=== PATIENT | male | born 1960 | race Caucasian/White ===

== ENCOUNTER 2024-05-02 22:55 | Inpatient (IN) ==
--- OUTSIDE RECORDS SUMMARY | 2024-05-02 23:03 | External Medical Summary | Summary of Care ---
Author Name Unknown Organization [facility] Address [address] [place] [address] Phone [phone] Care Team Providers Care Glass Technologist Name Role Phone NestorMarshall Shira RIZVI Primary Care Provider [phone] Reason for Visit * Reason Comments Outpatient Testing Encounter Details Date Type Department Care Team (Late st Contact Info) Description 11/27/2023 8:20 AM EST Laboratory Laboratory [facility] [address] [place] [id number] [facility] [address] [facility] [place] [address] Encounter for long-term (current) use of medications Allergies No known active allergiesdocumented as of this encounter (statuses as of 11/27/2023) Medications Medication Sig Dispensed Refills Start Date End Date Status Atorvastatin Calcium 40 MG Oral Tablet (Lipitor) TAKE ONE TABLET BY MOUTH EVERY DAY IN THE MORNING 90 Tablet 0 11/19/2023 Active Sildenafil Citrate 20 MG Oral Tablet (Revatio) Take 2 to 5 tablets by mouth as needed for sexual relations 20 Tablet 0 11/21/2023 Active documented as of this encounter (statuses as of 11/27/2023) Active Problems Problem Noted Date Diagnosed Date ADVANCE DIRECTIVE INFORMATION 11/08/2008 Overview: No, Advance Directive brochure offered , patient declined. documented as of this encounter (statuses as of 11/27/2023) Immunizations Name Administration Dates Next Due COVID-19 mRNA, LNP-s, No Pre serve, 2-Dose Series (Moderna) 03/20/2021,02/16/2021 COVID-19, MRNA-LNP, 23-24, P F, 30 MCG/0.3 mL, 12 YRS AND ABOVE, IM (CleanMyCRM-Comirnaty) 09/13/2023 COVID-19, mRNA, LNP-s, PF, B ooster, 100mcg/0.5mg (Moderna) 04/23/2022,10/15/2021 Pneumococcal Conjugate Vaccine, 20-valent (Prevn ar20) 11/27/2023 Seasonal Influenza Virus Vac cine, Unspecified Formulation 09/16/2022,09/10/2019 Seasonal Influenza, PF, 6 M & above, IM , (FluLaval or Fluzone) 09/02/2020 Seasonal Influenza, QUAD, wi th Preserv, 6 mons & Above, 0.5 mL, IM 08/14/2018 Seasonal Influenza, Quadrivalent Hd (Fluzone Hd) 09/13/2023 TD, Preservative Free 02/11/2019 TDAP (age 11 and older)(Adacel) 08/19/2008 Zoster Vaccine Recombinant (Shingrix) 08/22/2021 ,06/21/2021 documented as of this encounter Social History Tobacco Use Types Packs/Day Years Used Date Smoking Tobacco: Never Smokeless Tobacco: Never Alcohol Use Standard Drinks/Week Comments Yes 0.8 (1 standard drink = 0.6 oz p ure alcohol) occ wine or beer Hunger Vital Sign Answer Date Recorded Worried About Running Out of Food in the Last Ye ar Not on file 11/19/2023 Within the past 12 months, t he food you bought just didn't last and you didn't have money to get more. Never true 11/19/2023 Sex and Gender Information Value Date Recorded Sex Assigned at Male 11/19/2023 10:10 AM EST Gender Identity Male 11/19/2023 10:10 AM EST Sexual Orientation Straight 11/19/2023 10 :10 AM EST Job Start Date Occupation Industry Not on file Not on file Not on file documented as of this encounter Plan of Treatment Upcoming Encounters Date Type Department Care Team (Late st Contact Info) Description 11/30/2024 7:40 AM EST Office Visit Family Practice [facility] [address] [facility] [place] [address] Fernanda Gonzalez MD [address] [facility] [place] [address] 11/30/2024 10:00 AM EST Office Visit Dermatology [facility] [place] [address] [facility] [place] [address] Aashish Hooper MD [address] [facility] [place] [address] Pending Results Name Type Priority Associated Diagnoses Date /Time COMPREHENSIVE METABOLIC PANEL Lab Routine Encounter for long-term (current) use of medications 11/27/2023 8:13 AM EST LIPID PANEL WITH DIRECT LDL IF TG IS HIGH Lab Routine Encounter for long-term (current) use of medications 11/27/2023 8:13 AM EST Scheduled Procedures Name Priority Associated Diagnoses Date/Ti me COLONOSCOPY FLEXIBLE PROXIMA L DIAGNOSTIC Recall Special screening for malignant neoplasms, colon Health Maintenance Due Date Last Done Comments Depression Screening 1970 Cologuard 2003 Fecal Occult Blood Test 2003 Sigmoidoscopy 2003 Colonoscopy 10/19/2023 10/19/2013, 10/19/2013 Colorectal Cancer Screening 10/19/2023 Diabetes Screening 01/24/2025 01/24/2022, 0 03/01/2019, 09/14/2013 Lipid Panel 07/09/2026 07/09/2021, 0804/2019, 03/01/2019, Additional history exists DTaP,Tdap,and Td Vaccines (3 - Td or Tdap) 02/11/2029 02/11/2019, 08/19/2008 Zoster Vaccines Completed 08/22/2021, 06/21/2021 COVID-19 Vaccine Completed 09/13/2023, 05/2022, 10/15/2021, Additional history exists Influenza Vaccine (FLU shot) Completed , 09/16/2022, 09/02/2020, Additional history exists Pneumococcal Vaccine: 65+ Years Completed 11/27/2023 GARDASIL-HPV IMMUNIZATION SERIES Aged Out No longer eligible based on patient's age to complete this topic Hepatitis B Aged Out No longer eligi ble based on patient's age to complete this topic MENINGOCOCCAL (MENACTRA/MENVEO) Aged Out No longer eligible based on patient's age to complete this topic documented as of this encounter Medical Devices Not on filedocumented as of this encounter Visit Diagnoses Diagnosis Encounter for long-term (current) use of medications Encounter for long-term (current) use of other medications documented in this encounter Care Teams Glass Technologist Relationship Specialty Start Date End Date Marshall Baez DO [address] [place] [address] PCP - General Family Medicine 09/14/13 documented as of this encounter
--- OUTSIDE RECORDS SUMMARY | 2024-05-02 23:03 | External Medical Summary | Summary of Care ---
Author Name Unknown Organization [facility] Address [address] [facility] [address] Phone [phone] Care Team Providers Care Civil Engineering Draftsperson Name Role Phone Marshall Baez DO Primary Care Provider [phone] Encounter Details Date Type Department Care Team (Late st Contact Info) Description 03/30/2024 Telephone Hepatology, [facility] [address] [place] [address] Concetta Felipe DO [address] [place] [address] Allergies No known active allergiesdocumented as of this encounter (statuses as of 04/05/2024) Medications Medication Sig Dispensed Refills Start Date End Date Status Atorvastatin Calcium 40 MG Oral Tablet (Lipitor) TAKE ONE TABLET BY MOUTH EVERY DAY IN THE MORNING 90 Tablet 11/19/2023 Active Additional Information Patient taking differently:40 mg OralEVERY OTHER DAY, In the morning., Reported on 03/24/2024 Sildenafil Citrate 20 MG Oral Tablet (Revatio) TAKE 2 TO 5 TABLETS BY MOUTH NEEDED FOR SEXUAL RELATIONS 30 Tablet 3 03/25/2024 Active documented as of this encounter (statuses as of 04/05/2024) Active Problems Problem Noted Date Diagnosed Date ADVANCE DIRECTIVE INFORMATION 11/08/2008 Overview: No, Advance Directive brochure offered , patient declined. documented as of this encounter (statuses as of 04/05/2024) Immunizations Name Administration Dates Next Due COVID-19 mRNA, LNP-s, No Pre serve, 2-Dose Series (Moderna) 03/20/2021,02/16/2021 COVID-19, MRNA-LNP, 23-24, P F, 30 MCG/0.3 mL, 12 YRS AND ABOVE, IM (RF Biocidics-Comirnaty) 09/13/2023 COVID-19, mRNA, LNP-s, PF, B ooster, [...] on file documented as of this encounter Miscellaneous Notes * Telephone Encounter - Tita Luong OSA - 04/05/2024 12:19 PM EDT lmm * Telephone Encounter - Heena Medel MD - 04/05/2024 8:22 AM EDT Please schedule colonoscopy with EMR with me at [facility] next available, needs to be a 2 hrs case. * Telephone Encounter - Tita Luong OSA - 03/30/2024 12:[address] Medel, please review and advise * Telephone Encounter - Concetta Felipe DO - 03/30/2024 11:40 AM EDT This patient had a colonoscopy done by me today. Has 1 remaining large polyp that needs removed by EMR. Dr. Medel aware. Please schedule with him. Colonoscopy order placed. Concetta Felipe DO documented in this encounter Plan of Treatment Upcoming Encounters Date Type Department Care Team (Late st Contact Info) Description 11/30/2024 7:40 AM EST Office Visit Family Practice [facility] [address] [facility] [place] [address] Fernanda Gonzalez MD [address] [facility] [place] [address] 11/30/2024 10:00 AM EST Office Visit Dermatology [facility] [address] [facility] [place] [address] Aashish Hooper MD [address] [facility] [place] [address] Scheduled Orders Name Type Priority Associated Diagnoses Orde r Schedule COLONOSCOPY, DIAGNOSTIC (RECTUM) Procedures Routine Polyp of descending colon, unspecified type Ordered: 03/30/2024 Health Maintenance Due Date Last Done Comments Depression Screening 1970 Cologuard 2003 Fecal Occult Blood Test 2003 Sigmoidoscopy 2003 COVID-19 Vaccine ( season) 2024 09/13/2023, 09/16/2022, 04/23/2022, Additional history exists Diabetes Screening 11/27/2026 11/27/2023, 0 01/24/2022, 03/01/2019, Additional history exists Lipid Panel 11/27/2028 11/27/2023, 06/18, 07/12/2019, Additional history exists DTaP,Tdap,and Td Vaccines (3 - Td or Tdap) 02/11/2029 02/11/2019, 08/19/2008 Colonoscopy 03/30/2034 03/30/2024, 03/17, 10/19/2013, Additional history exists Colorectal Cancer Screening 03/30/2034 Zoster Vaccines Completed 09/15/2021, 04/2021, 06/21/2021 Influenza Vaccine (FLU shot) Completed , 09/13/2023, 09/16/2022, Additional history exists Pneumococcal Vaccine: 65+ Years [...] as of this encounter Visit Diagnoses Diagnosis Polyp of descending colon, unspecified type- Primary documented in this encounter Care Teams Civil Engineering Draftsperson Relationship Specialty Start Date End Date Marshall Baez DO [address] [place] [address] PCP - General Family Medicine 09/14/13 documented as of this encounter
--- OUTSIDE RECORDS SUMMARY | 2024-05-02 23:03 | External Medical Summary | Summary of Care ---
Author Name Unknown Organization [facility] Address [address] [facility] [address] Phone [phone] Care Team Providers Care Home Health Care Respiratory Therapist Name Role Phone Marshall Baez DO Primary Care Provider [phone] Encounter Details Date Type Department Care Team (Late st Contact Info) Description 03/30/2024 Telephone Hepatology, [facility] [address] [place] [address] Concetta Felipe DO [address] [place] [address] Allergies No known active allergiesdocumented as of this encounter (statuses as of 03/30/2024) Medications Medication Sig Dispensed Refills Start Date End Date Status Atorvastatin Calcium 40 MG Oral Tablet (Lipitor) TAKE ONE TABLET BY MOUTH EVERY DAY IN THE MORNING 90 Tablet 0 11/19/2023 Suspended Additional Information Patient taking differently:40 mg OralEVERY OTHER DAY, In the morning., Reported on 03/24/2024 Sildenafil Citrate 20 MG Oral Tablet (Revatio) TAKE 2 TO 5 TABLETS BY MOUTH NEEDED FOR SEXUAL RELATIONS 30 Tablet 3 03/25/2024 Suspended Additional Information documented as of this encounter (statuses as of 03/30/2024) Active Problems Problem Noted Date Diagnosed Date ADVANCE DIRECTIVE INFORMATION 11/08/2008 Overview: No, Advance Directive brochure offered , patient declined. documented as of this encounter (statuses as of 03/30/2024) Immunizations Name Administration Dates Next Due COVID-19 mRNA, LNP-s, No Pre serve, 2-Dose Series (Moderna) 03/20/2021,02/16/2021 COVID-19, MRNA-LNP, 23-24, P F, 30 MCG/0.3 mL, 12 YRS AND ABOVE, IM (Nantero-Comirnaty) 09/13/2023 COVID-19, mRNA, LNP-s, PF, B ooster, [...] encounter Miscellaneous Notes * Telephone Encounter - Concetta Felipe DO [...] 7:40 AM EST Office Visit Family Practice [facility] [address] [facility] [place] [address] Fernanda Gonzalez MD [address] [facility] [place] [address] 11/30/2024 10:00 AM EST Office Visit Dermatology [facility] [address] [facility] [place] [address] Aashish Hooper MD [address] [facility] [place] [address] Scheduled Orders Name Type Priority Associated Diagnoses Orde r Schedule COLONOSCOPY, DIAGNOSTIC (RECTUM) Procedures Routine Polyp of descending colon, unspecified type Ordered: 03/30/2024 Scheduled Procedures Name Priority Associated Diagnoses Date/Ti me COLONOSCOPY FLEXIBLE PROXIMAL DIAGNOSTIC Special screening for malignant neoplasms, colon 03/30/2024 10:47 AM EDT Health Maintenance Due Date Last Done Comments Depression Screening 1970 Cologuard 2003 Fecal Occult Blood Test 2003 Sigmoidoscopy 2003 Diabetes Screening 11/27/2026 11/27/2023, 0 01/24/2022, 03/01/2019, Additional history exists Lipid Panel 11/27/2028 11/27/2023, 08/01/2021, 07/12/2019, Additional history exists DTaP,Tdap,and Td Vaccines (3 - Td or Tdap) 02/11/2029 02/11/2019, 08/19/2008 Colonoscopy 03/30/2034 03/30/2024, 01/2013, 10/19/2013 Colorectal Cancer Screening 03/30/2034 Zoster Vaccines Completed 09/15/2021, 04/2021, 06/21/2021 COVID-19 Vaccine Completed 09/13/2023, , 04/23/2022, Additional history exists Influenza Vaccine (FLU shot) Completed , 09/13/2023, [...] Primary documented in this encounter Care Teams Home Health Care Respiratory Therapist Relationship Specialty Start Date End Date Marshall Baez DO [address] [place] [address] PCP - General Family Medicine 09/14/13 documented as of this encounter
--- OUTSIDE RECORDS SUMMARY | 2024-05-02 23:03 | External Medical Summary | Summary of Care ---
Author Name Unknown Organization [facility] Address [address] [place] [address] Phone [phone] Care Team Providers Care Metaphysics Teacher Name Role Phone Kolby Baeze Shira RIZVI Primary Care Provider [phone] Encounter Details Date Type Department Care Team (Late st Contact Info) Description 11/27/2023 Telephone Family Practice [facility] [place] [address] [facility] [place] [address] Fernanda Gonzalez MD [address] [facility] [place] [address] Allergies No known active allergiesdocumented as of this encounter (statuses as of 12/01/2023) Medications Medication Sig Dispensed Refills Start Date [...] as of this encounter (statuses as of 12/01/2023) Active Problems Problem Noted Date Diagnosed Date ADVANCE DIRECTIVE INFORMATION 11/08/2008 Overview: No, Advance Directive brochure offered , patient declined. documented as of this encounter (statuses as of 12/01/2023) Immunizations Name Administration Dates Next Due COVID-19 mRNA, LNP-s, No Pre serve, 2-Dose Series (Moderna) 03/20/2021,02/16/2021 COVID-19, MRNA-LNP, 23-24, P F, 30 MCG/0.3 mL, 12 YRS AND ABOVE, IM (PFIZER-Comirnaty) 09/13/2023 COVID-19, mRNA, LNP-s, PF, B ooster, [...] Telephone Encounter - Tita Luong OSA - 12/01/2023 10:08 AM EST Colon 03/30 * Telephone Encounter - Fernanda [place] OSA - 11/27/2023 8:08 AM EST Patient: Nathaniel Delgadillo [[id number]] Referral ID: [id number] Status: Pending Review Type: Ancillary Services Class: Internal Reason(s): Ancillary Services Required [] Diagnosis: Z12.11 (ICD-10-CM) - Special screening for malignant neoplasms, colon Procedure(s): [id number] - COLONOSCOPY, GI REFERRAL OP Start: Nov 27, 2023 Expiration: Requested: 999 Authorized: 999 Scheduled: Completed: Authorization #: Precertification #: Referring Provider: FERNANDA GONZALEZ Ref to Dept Specialty: Referred to Provider: Ref to Prov Specialty: Gastroenterology Referral Priority: Within 30 days (routine) No answer Please call pt and schedule documented in this encounter Plan of Treatment Upcoming Encounters Date Type Department Care Team (Latest Contact Info) Description 03/30/2024 1:30 PM EDT Hospital Encounter ENDO [facility], Endoscopy Room [facility] [address] [place] [phone] Concetta Felipe DO [address] [place] [address] 03/30/2024 1:30 PM EDT - 03/30/2024 2:00 PM EDT Surgery ENDO [facility], Endoscopy Room [facility] [address] [place] [phone] Concetta Felipe DO [address] [place] [address] COLONOSCOPY FLEXIBLE PROXIMAL DIAGNOSTIC 11/30/2024 7:40 AM EST Office Visit [facility] [place] [address] [address] Fernanda Gonzalez MD [address] [facility] [place] [address] 11/30/2024 10:00 AM EST Office Visit Dermatology [facility] [place] [address] [facility] [place] [address] Aashish Hooper MD [address] [facility] [place] [address] Scheduled Procedures Name Priority Associated Diagnoses Date/Ti me COLONOSCOPY FLEXIBLE PROXIMAL DIAGNOSTIC Special screening for malignant neoplasms, colon 03/30/2024 1:30 PM EDT Health Maintenance Due Date Last Done Comments Depression Screening 1970 Cologuard 2003 Fecal Occult Blood Test 2003 Sigmoidoscopy 2003 Colonoscopy 10/19/2023 10/19/2013, 10/19/2013 Colorectal Cancer Screening 10/19/2023 Diabetes Screening 11/27/2026 11/27/2023, 0 01/24/2022, 03/01/2019, Additional history exists Lipid Panel 11/27/2028 11/27/2023, 08/2 01/2021, 07/12/2019, Additional history exists DTaP,Tdap,and Td Vaccines [...] Not on filedocumented as of this encounter Care Teams Metaphysics Teacher Relationship Specialty Start Date End Date Marshall Baez DO [address] [place] [address] PCP - General Family Medicine 09/14/13 documented as of this encounter
--- OUTSIDE RECORDS SUMMARY | 2024-05-02 23:03 | External Medical Summary | Summary of Care ---
Author Name Unknown Organization [facility] Address [address] [facility] [address] Phone [phone] Care Team Providers Care Ep Tech Name Role Phone Marshall Baez DO Primary Care Provider [phone] Encounter Details Date Type Department Care Team (Late st Contact Info) Description 03/30/2024 Telephone Hepatology, [facility] [address] [place] [address] Concetta Felipe DO [address] [place] [address] Allergies No known active allergiesdocumented as of [...] MCG/0.3 mL, 12 YRS AND ABOVE, IM (GI-View-Comirnaty) 09/13/2023 COVID-19, mRNA, LNP-s, PF, B ooster, [...] encounter Miscellaneous Notes * Telephone Encounter - Heena Medel MD - 04/05/2024 8:22 AM EDT Please schedule colonoscopy with EMR with me at [facility] next available, needs to be a 2 [...] 7:40 AM EST Office Visit Family Practice [facility] [address] [facility] [place] [address] Fernanda Gonzalez MD [address] [facility] [place] [address] 11/30/2024 10:00 AM EST Office Visit Dermatology [facility] [address] [facility] [place] [place] [address] Aashish Hooper MD [address] [place] [address] Scheduled Orders Name Type Priority Associated Diagnoses [...] Additional history exists Lipid Panel 11/27/2028 11/27/2023, 0801/2021, 07/12/2019, Additional history exists DTaP,Tdap,and Td Vaccines [...] Primary documented in this encounter Care Teams Ep Tech Relationship Specialty Start Date End Date Marshall Baez DO [address] [place] [address] PCP - General Family Medicine 09/14/13 documented as of this encounter
--- OUTSIDE RECORDS SUMMARY | 2024-05-02 23:03 | External Medical Summary | Summary of Care ---
Author Name Unknown Organization [facility] Address [address] [facility] [address] Phone [phone] Care Team Providers Care Transport Pilot Name Role Phone Marshall Baez DO Primary Care Provider [phone] Encounter Details Date Type Department Care Team (Late st Contact Info) Description 03/30/2024 Telephone Hepatology, [facility] [address] [place] [address] Concetta Felipe DO [address] [place] [address] Allergies No known active allergiesdocumented as of this encounter (statuses as of 03/30/2024) Medications Medication Sig Dispensed Refills Start Date End Date Status Atorvastatin Calcium 40 MG Oral Tablet (Lipitor) TAKE ONE TABLET BY MOUTH EVERY DAY IN THE MORNING 90 Tablet 0 11/19/2023 Active Additional Information Patient taking differently:40 [...] MCG/0.3 mL, 12 YRS AND ABOVE, IM ([employer]-Comirnaty) 09/13/2023 COVID-19, mRNA, LNP-s, PF, B ooster, [...] 7:40 AM EST Office Visit Family Practice [facility] [address] [facility] [place] [address] Fernanda Gonzalez MD [address] [facility] [place] [address] 11/30/2024 10:00 AM EST Office Visit Dermatology [facility] [address] [facility] [place] [address] Aashish Hooper MD [address] [facility] [place] [address] Scheduled Orders Name Type Priority Associated Diagnoses [...] Primary documented in this encounter Care Teams Transport Pilot Relationship Specialty Start Date End Date Marshall Baez DO [address] [place] [address] PCP - General Family Medicine 09/14/13 documented as of this encounter
--- OUTSIDE RECORDS SUMMARY | 2024-05-02 23:03 | External Medical Summary | Summary of Care ---
Author Name Unknown Organization [facility] [address] [address] Phone [phone] Care Team Providers Care Torpedo Specialist Name Role Phone Rachel Bear DO Primary Care Provider [phone] Reason for Visit * Reason Comments eRx-Medication Refill Encounter Details Date Type Department Care Team (Late st Contact Info) Description 04/22/2024 Refill Family Practice [facility] [place] [address] [facility] [place] [address] Nicole Easley PA-C [address] [facility] [place] [address] Allergies No known active allergiesdocumented as of this encounter (statuses as of 04/23/2024) Medications Medication Sig Dispensed Refills Start Date End Date Status Sildenafil Citrate 20 MG Oral Tablet (Revatio) TAKE 2 TO 5 TABLETS BY MOUTH NEEDED FOR SEXUAL RELATIONS 30 Tablet 3 03/25/2024 Active Sulfamethoxazole- Trimethoprim 800-160 MG Oral Tablet (Bactrim DS)Indications:Ac nulato prostatitis Take 1 Tablet by mouth in the morning and 1 Tablet before bedtime. Do all this for 10 days. Until gone.. 20 Tablet 04/14/2024 Active Atorvastatin Calcium 40 MG Oral Tablet (Lipitor) TAKE ONE TABLET BY MOUTH EVERY DAY IN THE MORNING 90 Tablet 2 04/23/2024 Active Atorvastatin Calcium 40 MG Oral Tablet (Lipitor) TAKE ONE TABLET BY MOUTH EVERY DAY IN THE MORNING 90 Tablet 11/19/2023 4 Discontinued documented as of this encounter (statuses as of 04/23/2024) Active Problems Problem Noted Date Diagnosed Date ADVANCE DIRECTIVE INFORMATION 11/08/2008 Overview: No, Advance Directive brochure offered , patient declined. documented as of this encounter (statuses as of 04/23/2024) Immunizations Name Administration Dates Next Due COVID-19 [...] (Fluzone Hd) 09/13/2023 TD, Preservative Free 02/11/2019 TDAP, Age 7 and older, IM (Adacel) 08/19/2008 Zoster Vaccine Recombinant (Shingrix) 08/22/2021 ,06/21/2021 [...] encounter Miscellaneous Notes * Telephone Encounter - [facility] - 04/23/2024 3:12 PM EDT Signed Prescriptions: Disp Refills Atorvastatin Calcium 40 MG Oral Tablet (Li*90 Tab*2 Sig: TAKE ONE TABLET BY MOUTH EVERY DAY IN THE MORNINGAuthorizing Provider: RACHEL BEAR User: ALFONSO MEJIAS documented in this encounter Plan of Treatment Upcoming Encounters Date Type Department Care Team (Latest Contact Info) Description 05/17/2024 11:15 AM EDT Office Visit Dermatology [facility] [address] [facility] [place] [address] Aashish Hooper MD [address] [facility] [place] [address] 07/23/2024 10:40 AM EDT Hospital Encounter OR [facility], Operating Room, [facility] - 4th Floor [address] [place] [address] Heena Medel MD [address] [place] [address] 07/23/2024 10:40 AM EDT - 07/23/2024 12:56 PM EDT Surgery OR [facility], Operating Room, [facility] - 4th Floor [address] [place] [address] Heena Medel MD [address] [place] [address] COLONOSCOPY, FLEXIBLE; WITH ENDOSCOPIC MUCOSAL RESECTION 11/30/2024 7:40 AM EST Office Visit [facility] [place] [address] [facility] [place] [address] Fernanda Gonzalez MD [address] [facility] [place] [address] Scheduled Procedures Name Priority Associated Diagnoses Date/Ti me COLONOSCOPY, FLEXIBLE; WITH ENDOSCOPIC MUCOSAL RESECTION Polyp of large intestine 07/23/2024 10:40 AM EDT Health Maintenance Due Date Last [...] filedocumented as of this encounter Care Teams Torpedo Specialist Relationship Specialty Start Date End Date Rachel Bear DO [address] [place] [address] PCP - General Family Medicine 09/14/13 documented as of this encounter
--- OUTSIDE RECORDS SUMMARY | 2024-05-02 23:03 | External Medical Summary | Summary of Care ---
Author Name Unknown Organization [facility] Address [address] [place] [address] Phone [phone] Care Team Providers Care Block Setter Gypsum Name Role Phone Marshall Baez DO Primary Care Provider [phone] Reason for Visit * Auth/Cert Specialty Diagnoses / Procedures Referred By Michelle laughlin Referred To Contact Diagnoses Special screening for malignant neoplasms, colon Special screening for malignant neoplasms, colon [Z12.11] Procedures COLONOSCOPY, DIAGNOSTIC (RECTUM) COLONOSCOPY FLEXIBLE PROXIMAL DIAGNOSTIC COLONOSCOPY FLEXIBLE PROXIMAL DIAGNOSTIC Concetta Felipe DO [address] [place] [address] [facility] [address] [place] [address] Referral ID Status Reason Start Date Expiration Date Visits Re quested Visits Authorized [id number] Encounter Details Date Type Department Care Team (Latest Contact Info) Description 03/30/2024 9:38 AM EDT - 03/30/2024 12:10 PM EDT Hospital Encounter [facility], Endoscopy Room [facility] [address] [place] [address] Concetta Felipe DO [address] [place] [address] Colonoscopy Discharge Disposition: Home - Self Care Allergies No known active allergiesdocumented as of this encounter (statuses as of 03/31/2024) Medications Medication Sig Dispensed Refills Start Date [...] for sexual relations 20 Tablet 0 11/21/2023 4 Discontinued documented as of this encounter (statuses as of 03/31/2024) Active Problems Problem Noted Date Diagnosed Date ADVANCE DIRECTIVE INFORMATION 11/08/2008 Overview: No, Advance Directive brochure offered , patient declined. documented as of this encounter (statuses as of 03/31/2024) Immunizations Name Administration Dates Next Due COVID-19 mRNA, LNP-s, No Pre serve, 2-Dose Series (Moderna) 03/20/2021,02/16/2021 COVID-19, MRNA-LNP, 23-24, P F, 30 MCG/0.3 mL, 12 YRS AND ABOVE, IM ([email or web address]) 09/13/2023 COVID-19, mRNA, LNP-s, PF, B ooster, [...] on file documented as of this encounter Last Filed Vital Signs Vital Sign Reading Time Taken Comments Blood Pressure 143/77 03/30/2024 11:55 AM EDT Pulse 62 03/30/2024 11:55 AM EDT Temperature 36.3 C (97.4 F) 03/30/2024 11:55 AM E DT Respiratory Rate 18 03/30/2024 11:55 AM EDT Oxygen Saturation 100% 03/30/2024 11:55 AM EDT Inhaled Oxygen Concentration - - Weight 79.4 kg (175 lb) 03/30/2024 9:59 AM EDT Height 177.8 cm (5' 10") 03/24/2024 7:46 AM EDT Body Mass Index 25.11 03/24/2024 7:46 AM EDT documented in this encounter H&P Notes * Concetta Felipe, - 03/30/2024 10:22 AM EDT Endoscopy Pre-Procedure Assessment Name: Nathaniel Delgadillo Date: 03/30/2024 Time: 10:22 AM Procedure: Colonoscopy; with Indication(s) of average risk screening Endoscopy Pre-Procedure Assessment: Prior to the procedure, the patient was identified. The patient's history, medications and allergies were reviewed as per the Anesthesia Assessment. The patient is competent. The risks and benefits of the proposed procedure and the planned sedation were discussed with the patient. All questions were answered and informed consent for the procedure was obtained. This patient has undergone a preprocedural evaluation. A determination has been made to proceed with the planned procedure under [facility] procedural guidelines and the [facility] Non-Emergent, Elective Medical Services and Treatment Recommendations (published on 02-22-20). The community and hospital prevalence of COVID-19 has been discussed as well as this patient's specific risks associated with SARS-CoV-19 infection. Based upon the clinical acuity and patient-specific care considerations, this procedure is deemed a Tier II - Intermediate acuity treatment or service with either progression or the threat of progressive disease related to the delay in treatment. Not providing the service has the potential for increasing morbidity or mortality. BP 142/87 | Pulse 55 | Temp 36.3 C (97.3 F) (Tympanic) | Resp 16 | Ht 1.778 m (5' 10") | Wt 79.4 kg (175 lb) | SpO2 100% | BMI 25.11 kg/m | BSA 1.98 m Prior to Admission medications Medication Sig Last Dose Discont. Atorvastatin Calcium 40 MG Oral Tablet (Lipitor) TAKE ONE TABLET BY MOUTH EVERY DAY IN THE MORNING Patient taking differently: Take 1 Tablet by mouth every other day. In the morning. 03/29/2024 Sildenafil Citrate 20 MG Oral Tablet (Revatio) TAKE 2 TO 5 TABLETS BY MOUTH NEEDED FOR SEXUAL RELATIONS Review of patient's allergies indicates: No Known Allergies Physical Exam: Mental Status Examination: alert and oriented. General: nad, calm Airway Examination: normal oropharyngeal airway and neck mobility. Respiratory Examination: symmetrical excursion Cardiac: RRR, no murmurs Abd:soft/ntd ASA Grade: II - A patient with mild systemic disease. After reviewing the risks and benefits, the patient was deemed in satisfactory condition to undergothe procedure. The anesthesia plan was to use general anesthesia. Concetta Felipe DO Gastroenterology and Hepatology 03/30/2024 documented in this encounter Procedure Notes * Marshall Baez DO - 03/30/2024 10:36 AM EDTAssociated Order(s): COLONOSCOPY [facility] Patient Name: Nathaniel Delgadillo Procedure Date: 03/30/2024 10:36 AM Date of : 1960 Admit Type: Outpatient Note Status: Finalized Date of : 1960 Admit Type: Outpatient Age: 64 Room: Endo 3 Gender: Male Note Status: Finalized Procedure: Colonoscopy Indications: Screening for colorectal malignant neoplasm Providers: Concetta Felipe DO (Doctor) Patient Profile: This is a 64 year old male. Refer to note in patient chart for documentation of history and physical. Referring MD: Marshall Baez DO (Referring MD) Medicines: General Anesthesia Complications: No immediate complications. Procedure: Pre-Anesthesia Assessment: - Prior to the procedure, a History and Physical was performed, and patient medications and allergies were reviewed. The risks and benefits of the procedure and the sedation options and risks were discussed with the patient. All questions were answered and informed consent was obtained. Patient identification and proposed procedure were verified by the physician, the nurse and the franchise sales manager in the procedure room. Mental Status Examination: alert and oriented. Airway Examination: Mallampati Class II (the uvula but not tonsillar pillars visualized). Respiratory Examination: clear to auscultation. CV Examination: RRR, no murmurs, no S3 or S4. Prophylactic Antibiotics: The patient does not require prophylactic antibiotics. Prior Anticoagulants: The patient has taken no anticoagulant or antiplatelet agents. ASA Grade Assessment: II - A patient with mild systemic disease. After reviewing the risks and benefits, the patient was deemed in satisfactory condition to undergo the procedure. The anesthesia plan was to use general anesthesia. Immediately prior to administration of medications, the patient was re-assessed for adequacy to receive sedatives. The physical status of the patient was re-assessed after the procedure. After I obtained informed consent, the scope was passed under direct vision. All instruments were visually inspected immediately before and after removal from the patient to ensure they are fully intact. Throughout the procedure, the patient's blood pressure, pulse, and oxygen saturations were monitored continuously. The colonoscopy was performed without difficulty. The patient tolerated the procedure well. The quality of the bowel preparation was good. The PCF-H180AL(colonscope)[id number] was introduced through the anus and advanced to the cecum, identified by appendiceal orifice and ileocecal valve. Findings & Specimens: Hemorrhoids were found on perianal exam. Two sessile polyps were found in the cecum. The polyps were 3 to 4 mm in size. These polyps were removed with a cold snare. Resection and retrieval were complete. Verification of patient identification for the specimen was done by the physician and nurse using the patient's name and date. The pathology specimen was placed into Bottle Number 1. A 14 mm polyp was found in the sigmoid colon. The polyp was semi-pedunculated. The polyp was removed with a hot snare. Resection and retrieval were complete. The pathology specimen was placed into Bottle Number 2. A 3 mm polyp was found in the sigmoid colon. The polyp was sessile. The polyp was removed with a cold snare. Resection and retrieval were complete. The pathology specimen was placed into Bottle Number 2. A 20 mm polyp was found in the descending colon. The polyp was carpet-like. Polypectomy was not attempted due to polyp size (too large to be excised). Area was tattooed with an injection of 1 mL of Spot (carbon black). Internal hemorrhoids were found during retroflexion. The hemorrhoids were large. Impression: - Hemorrhoids found on perianal exam. - Two 3 to 4 mm polyps in the cecum, removed with a cold snare. Resected and retrieved. - One 14 mm polyp in the sigmoid colon, removed with a hot snare. Resected and retrieved. - One 3 mm polyp in the sigmoid colon, removed with a cold snare. Resected and retrieved. - One 20 mm polyp in the descending colon. Resection not attempted. Tattooed. - Internal hemorrhoids. Recommendation: - Patient has a contact number available for emergencies. The signs and symptoms of potential delayed complications were discussed with the patient. Return to normal activities tomorrow. Written discharge instructions were provided to the patient. - The patient will be observed post-procedure, until all discharge criteria are met. - Discharge patient to home (with escort). - Resume previous diet. - Continue present medications. - Await pathology results. - Repeat colonoscopy at the next available with Dr. Medel for EMR of remaining large polyp. Concetta Felipe DO 03/30/2024 11:40:21 AM This report has been signed electronically. documented in this encounter Nursing Notes * Ritu Carlin RN - 03/30/2024 12:09 PM EDT Patient is alert, pain free, and tolerating po fluids prior to discharge. Patient has been visited by Dr. Felipe. Patient has received and demonstrates understanding of discharge instructions. Patient ambulates to private auto accompanied by endo staff. * Ritu Carlin RN - 03/30/2024 11:40 AM EDT Patient transferred to post endo s/p colonoscopy. Patient awake and responding appropriately Respirations are even and unlabored on room air. NSR in the 70s on the monitor. Abdomen soft and non distended. Vital signs stable. * Jeremias Shultz RN - 03/30/2024 11:38 AM EDT Specimen(s) and location(s) verified with physician post procedure 11:38 AM Jeremias Shultz RN See anesthesia record for medication administered during procedure. Jeremias Shultz RN Pt homero colonoscopy w/ polypectomies and tattooing well. Abd pressure applied to assist w/ advancement of the scope. Abd soft post proc. To recovery lying on L side. Pre cleaning of scope at the bedside started by treatment technician. * Ana Lopez RN - 03/30/2024 9:50 AM EDT The following pt discharge instructions reviewed with pt prior to prodedure: No driving today. No alcohol today. No signing of legal documents. Rest as much as possible today and can return to normal activities tomorrow. No operating any heavy equipment today. Diet as tolerated. Pt verbalized understanding. documented in this encounter Plan of Treatment Upcoming Encounters Date Type Department Care Team (Late st Contact Info) Description 11/30/2024 7:40 AM EST Office Visit Family Practice [facility] [place] [address] [facility] [place], [place] [address] Fernanda Gonzalez MD [address] [facility] [place], [place] [address] 11/30/2024 10:00 AM EST Office Visit Dermatology [facility] [place] [address] [facility] [place], [place] [address] Aashish [place] MD [address] [facility] [address] [place], [place] [address] Pending Results Name Type Priority Associated Diagnoses Date /Time SURGICAL PATHOLOGY Pathology Routine Special screening for malignant neoplasms, colon 03/30/2024 11:39 AM EDT Scheduled Orders Name Type Priority Associated Diagnoses Orde r Schedule SURGICAL PATHOLOGY Pathology Routine Special screening for malignant neoplasms, colon Release Upon Ordering for 1 Occurrences starting 03/30/2024, 1 completed Health Maintenance Due Date Last Done Comments Depression Screening 1970 Cologuard 2003 Fecal Occult Blood Test 2003 Sigmoidoscopy 2003 Diabetes Screening 11/27/2026 11/27/2023, 0 01/24/2022, 03/01/2019, Additional history exists Lipid Panel 11/27/2028 11/27/2023, 082 01/2021, 07/12/2019, Additional history exists DTaP,Tdap,and Td Vaccines (3 - Td or Tdap) 02/11/2029 02/11/2019, 08/19/2008 Colonoscopy 03/30/2034 03/30/2024, 1201/2013, 10/19/2013 Colorectal Cancer Screening 03/30/2034 Zoster Vaccines [...] Not on filedocumented as of this encounter Procedures Procedure Name Priority Date/Time Associated Diagnosis Comments COLONOSCOPY 03/30/2024 10:36 AM EDT documented in this encounter Results * COLONOSCOPY (03/30/2024 10:36 AM EDT) 03/30/2024 10:3 6 AM EDT Narrative Procedure Note Marshall Baez DO - 03/30/2024 10:[address] [facility] Patient Name: Nathaniel Delgadillo Procedure Date: 03/30/2024 10:36 AM Date of : 1960 Admit Type: Outpatient Note Status:Finalized Date of : 1960 Admit Type: Outpatient Age: 64 Room: Endo 3 Gender: Male Note Status: Finalized Procedure: Colonoscopy Indications: Screening for colorectal malignant neoplasm Providers: Concetta Felipe DO (Doctor) Patient Profile: This is a 64 year old male. Refer to note inpatient chart for documentation of history and physical. Referring MD: Marshall Baez DO (Referring MD) Medicines: General Anesthesia Complications: No immediate complications. Procedure: Pre-Anesthesia Assessment: - Prior to the procedure, a History and Physicalwas performed, and patient medications and allergies were reviewed. The risksand benefits of the procedure and the sedation options and risks were discussed withthe patient. All questions were answered and informed consent was obtained. Patientidentification and proposed procedure were verified by the physician, the nurseand the franchise sales manager in the procedure room. Mental Status Examination: alertand oriented. Airway Examination: Mallampati Class II (the uvula but not tonsillarpillars visualized). Respiratory Examination: clear to auscultation. CV Examination:RRR, no murmurs, no S3 or S4. Prophylactic Antibiotics: The patient does notrequire prophylactic antibiotics. Prior Anticoagulants: The patient has taken noanticoagulant or antiplatelet agents. ASA Grade Assessment: II - A patient with mildsystemic disease. After reviewing the risks and benefits, the patient was deemed insatisfactory condition to undergo the procedure. The anesthesia plan was to use generalanesthesia. Immediately prior to administration of medications, the patient wasre-assessed for adequacy to receive sedatives. The physical status of the patient wasre-assessed after the procedure. After I obtained informed consent, the scope waspassed under direct vision. All instruments were visually inspected immediatelybefore and after removal from the patient to ensure they are fully intact. Throughout the procedure, the patient's bloodpressure, pulse, and oxygen saturations were monitored continuously. The colonoscopy wasperformed without difficulty. The patient tolerated the procedure well. The qualityof the bowel preparation was good. The PCF-H180AL(colonscope)[id number] was introducedthrough the anus and advanced to the cecum, identified by appendiceal orifice andileocecal valve. Findings & Specimens: Hemorrhoids were found on perianal exam. Two sessile polyps were found in the cecum. The polyps were 3 to 4 mmin size. These polyps were removed with a cold snare. Resection and retrieval were complete.Verification of patient identification for the specimen was done by the physician and nurseusing the patient's name and date. The pathology specimen was placed into Bottle Number 1. A 14 mm polyp was found in the sigmoid colon. The polyp wassemi-pedunculated. The polyp was removed with a hot snare. Resection and retrieval were complete. Thepathology specimen was placed into Bottle Number 2. A 3 mm polyp was found in the sigmoid colon. The polyp was sessile.The polyp was removed with a cold snare. Resection and retrieval were complete. The pathology specimenwas placed into Bottle Number 2. A 20 mm polyp was found in the descending colon. The polyp wascarpet-like. Polypectomy was not attempted due to polyp size (too large to be excised). Area wastattooed with an injection of 1 mL of Spot (carbon black). Internal hemorrhoids were found during retroflexion. The hemorrhoidswere large. Impression: - Hemorrhoids found on perianal exam. - Two 3 to 4 mm polyps in the cecum, removed with acold snare. Resected and retrieved. - One 14 mm polyp in the sigmoid colon, removedwith a hot snare. Resected and retrieved. - One 3 mm polyp in the sigmoid colon, removed witha cold snare. Resected and retrieved. - One 20 mm polyp in the descending colon.Resection not attempted. Tattooed. - Internal hemorrhoids. Recommendation: - Patient has a contact number available foremergencies. The signs and symptoms of potential delayed complications were discussed withthe patient. Return to normal activities tomorrow. Written discharge instructionswere provided to the patient. - The patient will be observed post-procedure,until all discharge criteria are met. - Discharge patient to home (with escort). - Resume previous diet. - Continue present medications. - Await pathology results. - Repeat colonoscopy at the next available with for EMR of remaining large polyp. Concetta Felipe DO 03/30/2024 11:40:21 AM This report has been signed electronically. Marshall Baez DO [facility] documented in this encounter Visit Diagnoses Diagnosis Special screening for malignant neoplasms, colon documented in this encounter Administered Medications Inactive Administered Medications - up to 3 most recent administrations Medication Order MAR Action Action Date Dose Rate Site isolyte-S pH 7.4 infusion Intravenous, at 75 mL/hr, Plasma-LYTE 148, isolyte-S, and isolyte-S pH 7.4 are considered equivalent - including for MAR barcode scanning., PRN, Starting on Fri03/30/24 at 0951, Until Fri03/30/24 at 1250, Pre-Op Continue from Pre-Op 03/30/2024 10:46 AM EDT 75 mL/hr New Bag 03/30/2024 10:15 AM EDT 75 mL/hr H and Right documented in this encounter Active and Recently Administered Medications Times are shown in EDT. PRN Medication Order 03/28/2024 03/29/2024 03/30/2024 isolyte-S pH 7.4 infusion Intravenous, at 75 mL/hr, Plasma-LYTE 148, isolyte-S, and isolyte-S pH 7.4 are considered equivalent - including for MAR barcode scanning., PRN, Starting on Fri03/30/24 at 0951, Until Fri03/30/24 at 1250, Pre-Op 1015 (New Bag - Prov ider: Ana Lopez RN)1046 (Continue from Pre-Op - Provider: Vitaly Billingsley CRNA)1136 (Anes Intra-Op Fluid - Provider: Vitaly Billingsley CRNA) documented in this encounter Care Teams Block Setter [place]psum Relationship Specialty Start Date End Date Marshall Baez DO [address] [facility] [address] PCP - General Family Medicine 09/14/13 documented as of this encounter
--- OUTSIDE RECORDS SUMMARY | 2024-05-02 23:03 | External Medical Summary | Summary of Care ---
Author Name Unknown Organization [facility] Address [address] [address] Phone [phone] Care Team Providers Care Relief Mate Name Role Phone Rachel Bear DO Primary Care Provider +[phone] Reason for Visit * Reason Comments eRx-Medication Refill Encounter Details Date Type Department Care Team (Late st Contact Info) Description 03/24/2024 Refill Family Practice [facility] [place] 200 [facility] [place] [address] Rachel Bear DO 200 [facility] [place] [address] Allergies No known active allergiesdocumented as of this encounter (statuses as of 03/25/2024) Medications Medication Sig Dispensed Refills Start Date [...] SEXUAL RELATIONS 30 Tablet 3 03/25/2024 Active Sildenafil Citrate 20 MG Oral Tablet (Revatio) Take 2 to 5 tablets by mouth as needed for sexual relations 20 Tablet 0 11/21/2023 4 Discontinued documented as of this encounter (statuses as of 03/25/2024) Active Problems Problem Noted Date Diagnosed Date ADVANCE DIRECTIVE INFORMATION 11/08/2008 Overview: No, Advance Directive brochure offered , patient declined. documented as of this encounter (statuses as of 03/25/2024) Immunizations Name Administration Dates Next Due COVID-19 mRNA, LNP-s, No Pre serve, 2-Dose Series (Moderna) 03/20/2021,02/16/2021 COVID-19, MRNA-LNP, 23-24, P F, 30 MCG/0.3 mL, 12 YRS AND ABOVE, IM ([employer]Comir[employer]y) 09/13/2023 COVID-19, mRNA, LNP-s, PF, B ooster, [...] encounter Miscellaneous Notes * Telephone Encounter - Ktahleen Wall [facility] - 03/25/2024 11:57 AM EDT Signed Prescriptions: Disp Refills Sildenafil Citrate 20 MG Oral Tablet (Itzel*30 Tab*3 Sig: TAKE 2 TO 5 TABLETS BY MOUTH NEEDED FOR SEXUAL RELATIONSAuthorizing Provider: RACHEL BEARUser: KATHLEEN WALL documented in this encounter Plan of Treatment Upcoming Encounters Date Type Department Care Team (Latest Contact Info) Description 03/30/2024 1:30 PM EDT Hospital Encounter ENDO [facility], Endoscopy Room [facility] [address] [place] [phone] Concetta Felipe DO [address] [place] [address] 03/30/2024 1:30 PM EDT - 03/30/2024 2:00 PM EDT Surgery ENDO [facility], Endoscopy Room [facility] [address] [place] [phone] Concetta Felipe DO [address] [place] [address] COLONOSCOPY FLEXIBLE PROXIMAL DIAGNOSTIC 11/30/2024 7:40 AM EST Office Visit Family Practice [facility] [place] [address] [place] [address] Fernanda Gonzalez MD [address] [place], [place] [id number] 11/30/2024 10:00 AM EST Office Visit [facility] [address] [place] [address] Aashish Hooper MD [address] [place] [address] Scheduled Procedures Name Priority Associated Diagnoses Date/Ti [...] Tdap) 02/11/2029 02/11/2019, 08/19/2008 Zoster Vaccines Completed 09/15/2021, 04/2021, 06/21/2021 COVID-19 [...] filedocumented as of this encounter Care Teams Relief Mate Relationship Specialty Start Date End Date Rachel Bear DO [address] [place] [address] PCP - General Family Medicine 09/14/13 documented as of this encounter
--- OUTSIDE RECORDS SUMMARY | 2024-05-02 23:03 | External Medical Summary | Summary of Care ---
Author Name Unknown Organization [facility] Address [address] [facility] [address] Phone [phone] Care Team Providers Care Search Engineer Name Role Phone Marshall Baez DO Primary Care Provider [phone] Encounter Details Date Type Department Care Team (Late st Contact Info) Description 03/30/2024 Telephone Hepatology, [facility] [address] [place] [address] Concetta Felipe DO [address] [place] [address] Allergies No known active allergiesdocumented as of this encounter (statuses as of 04/06/2024) Medications Medication Sig Dispensed Refills Start Date [...] as of this encounter (statuses as of 04/06/2024) Active Problems Problem Noted Date Diagnosed Date ADVANCE DIRECTIVE INFORMATION 11/08/2008 Overview: No, Advance Directive brochure offered , patient declined. documented as of this encounter (statuses as of 04/06/2024) Immunizations Name Administration Dates Next Due COVID-19 mRNA, LNP-s, No Pre serve, 2-Dose Series (Moderna) 03/20/2021,02/16/2021 COVID-19, MRNA-LNP, 23-24, P F, 30 MCG/0.3 mL, 12 YRS AND ABOVE, IM ([employer]-Comirnaty) 09/13/2023 COVID-19, mRNA, LNP-s, PF, B ooster, [...] encounter Miscellaneous Notes * Telephone Encounter - Cristiane Sanchez [facility] - 04/06/2024 8:49 AM EDT Pt scheduled on 07/23/24 for EMR * Telephone Encounter - Tita Luong [facility] - 04/05/2024 12:19 PM EDT lmm * Telephone Encounter - Heena Medel MD - 04/05/2024 8:22 AM EDT Please schedule colonoscopy with EMR with me at [facility] next available, needs to be a [...] Department Care Team (Latest Contact Info) Description 07/23/2024 10:48 AM EDT Hospital Encounter OR [facility], Operating Room, [facility] - 4th Floor [address] [place] [address] [place] [address] Heena Medel MD [address] [place] [address] 07/23/2024 10:48 AM EDT - 07/23/2024 1:04 PM EDT Surgery OR [facility], Operating Room, [facility] - 4th Floor [address] [place] [address] Heena Medel MD [address] [place] [address] COLONOSCOPY, FLEXIBLE; WITH ENDOSCOPIC MUCOSAL RESECTION 11/30/2024 7:40 AM EST Office Visit Family Practice [facility] 200 [facility] [place] [address] Fernanda Gonzalez MD 200 [facility] [place] [address] 11/30/2024 10:00 AM EST Office Visit Dermatology [facility] 200 [facility] [place] [address] Aashish Hooper MD 200 [facility] [place] [address] Scheduled Orders Name Type Priority Associated Diagnoses Orde r Schedule COLONOSCOPY, DIAGNOSTIC (RECTUM) Procedures Routine Polyp of descending colon, unspecified type Ordered: 03/30/2024 Scheduled Procedures Name Priority Associated Diagnoses Date/Ti me COLONOSCOPY, FLEXIBLE; WITH ENDOSCOPIC MUCOSAL RESECTION Polyp of large intestine 07/23/2024 10:48 AM EDT Health Maintenance Due Date Last [...] Polyp of descending colon, unspecified type- Primary Polyp of large intestine documented in this encounter Care Teams Search Engineer Relationship Specialty Start Date End Date Marshall Baez DO [address] [place] [address] PCP - General Family Medicine 09/14/13 documented as of this encounter
--- OUTSIDE RECORDS SUMMARY | 2024-05-02 23:03 | External Medical Summary | Summary of Care ---
Author Name Unknown Organization [facility] Address [address] [facility] [address] Phone [phone] Care Team Providers Care Meat Boner Name Role Phone Marshall Baez DO Primary Care Provider [phone] Encounter Details Date Type Department Care Team (Late st Contact Info) Description 04/20/2024 Orders Only PATIENT PORTAL DO NOT DELETE THIS DEPT USED BY [place] [address] Allergies No known active allergiesdocumented as of this encounter (statuses as of 04/20/2024) Medications Medication Sig Dispensed Refills Start Date [...] SEXUAL RELATIONS 30 Tablet 3 03/25/2024 Active Sulfamethoxazole-T rimethoprim 800-160 MG Oral Tablet (Bactrim DS)Indications:Acu te prostatitis Take 1 Tablet by mouth in the morning and 1 Tablet before bedtime. Do all this for 10 days. Until gone.. 20 Tablet 04/14/2024 04/24/2024 Active documented as of this encounter (statuses as of 04/20/2024) Active Problems Problem Noted Date Diagnosed Date ADVANCE DIRECTIVE INFORMATION 11/08/2008 Overview: No, Advance Directive brochure offered , patient declined. documented as of this encounter (statuses as of 04/20/2024) Immunizations Name Administration Dates Next Due COVID-19 [...] 05/17/2024 11:15 AM EDT Office Visit Dermatology [facility] 200 [facility] [place] [address] Aashish Hooper MD 200 [facility] [place] [address] 07/23/2024 10:40 AM EDT Hospital Encounter OR [facility], Operating Room, [facility] - 4th Floor [address] [place] [address] Heena Medel MD [address] [place] [address] 07/23/2024 10:40 AM EDT - 07/23/2024 12:56 PM EDT Surgery OR [facility], Operating Room, [facility] - 4th Floor 400 [facility] [place] [address] Heena Medel MD [address] [place] [address] COLONOSCOPY, FLEXIBLE; WITH ENDOSCOPIC MUCOSAL RESECTION 11/30/2024 7:40 AM EST Office Visit Family Practice [facility] 200 [facility] [place] [address] Fernanda Gonzalez MD 200 [facility] [place] [address] Scheduled Procedures Name Priority Associated Diagnoses Date/Ti [...] filedocumented as of this encounter Care Teams Meat Boner Relationship Specialty Start Date End Date Marshall Baez DO [address] [place] [address] PCP - General Family Medicine 09/14/13 documented as of this encounter
--- OUTSIDE RECORDS SUMMARY | 2024-05-02 23:03 | External Medical Summary | Summary of Care ---
Author Name Unknown Organization [facility] Address [address] [facility] [address] Phone [phone] Care Team Providers Care Probation Agent Name Role Phone Marshall Baez DO Primary Care Provider [phone] Reason for Visit * Reason Comments Acute Encounter Details Date Type Department Care Team (Late st Contact Info) Description 04/14/2024 11:00 AM EDT Telemedicine Family Practice [facility] [place] [address] [facility] [place] [address] Marshall Baez DO [address] [facility] [place] [address] Acute prostatitis*; Screening PSA (prostate specific antigen) Allergies No known active allergiesdocumented as of this encounter (statuses as of 04/14/2024) Medications Medication Sig Dispensed Refills Start Date [...] as of this encounter (statuses as of 04/14/2024) Active Problems Problem Noted Date Diagnosed Date ADVANCE DIRECTIVE INFORMATION 11/08/2008 Overview: No, Advance Directive brochure offered , patient declined. documented as of this encounter (statuses as of 04/14/2024) Immunizations Name Administration Dates Next Due COVID-19 mRNA, LNP-s, No Pre serve, 2-Dose Series (Moderna) 03/20/2021,02/16/2021 COVID-19, MRNA-LNP, 23-24, P F, 30 MCG/0.3 mL, 12 YRS AND ABOVE, [facility] ([facility] 09/13/2023 COVID-19, mRNA, LNP-s, PF, B ooster, [...] on file documented as of this encounter Progress Notes * Marshall Baez, - 04/14/2024 11:09 AM EDT Subjective: Nathaniel Delgadillo is a 64 year old male. Chief Complaint Patient presents with Acute Patient location: HOME. I was in a hospital or clinic location. After connecting through [facility] [employer] [facility],patient was verified with two unique identifiers. Patient (or authorized legal signs sales representative) was then informed that this was a Telemedicine visit and being conducted confidentially over secure lines. Methods to assure confidentiality were taken. Patient acknowledged consent and understanding of pr ivacy and security of the Telemedicine visit. The patient agreed to participate. HPI: He had a colonoscopy 2 weeks ago. They took out 5 polyps and he had bleeding afterwards. His hemorrhoids have worsened because of this. His hemorrhoids improved some and he decided to go on 55 mile bike ride. He got some numbness around his anus. He felt like his prostate was inflamed because of it. He feels like he has a prostatitis. He had pain the last two nights and took ibuprofen and extra water. Acute pain. He has had chills but no fever. Last night he had them. He did not find any lymph nodes. PMHx, meds, and allergies reviewed Patient Active Problem List Diagnosis ADVANCE DIRECTIVE INFORMATION Current Outpatient Medications Medication Sig Dispense Refill Atorvastatin Calcium 40 MG Oral Tablet (Lipitor) TAKE ONE TABLET BY MOUTH EVERY DAY IN THE MORNING (Patient taking differently: Take 1 Tablet by mouth every other day. In the morning.) 90 Tablet 0 Sildenafil Citrate 20 MG Oral Tablet (Revatio) TAKE 2 TO 5 TABLETS BY MOUTH NEEDED FOR SEXUAL RELATIONS 30 Tablet 3 No current facility-administered medications for this visit. Review of patient's allergies indicates: No Known Allergies OBJECTIVE: There were no vitals taken for this visit. Estimated body mass index is 25.11 kg/m as calculated from the following: Height as of 03/24/24: 1.778 m (5' 10"). Weight as of 03/30/24: 79.4 kg (175 lb). BP Readings from Last 3 Encounters: 03/30/24 143/77 11/27/23 124/76 07/10/21 118/62 Wt Readings from Last 3 Encounters: 03/30/24 79.4 kg (175 lb) 11/27/23 82.6 kg (182 lb) 07/10/21 83.1 kg (183 lb 1.9 oz) ROS: Negative except for above PHYSICAL EXAM: General: alert, healthy, and no distress ASSESSMENT/Plan Acute prostatitis (Primary) - Sulfamethoxazole-Trimethoprim 800-160 MG Oral Tablet (Bactrim DS); Take 1 Tablet by mouth in the morning and 1 Tablet before bedtime. Do all this for 10 days. Until gone.. Screening PSA (prostate specific antigen) - PSA; Future; Expected date: 04/14/2024 If he continues to feel better can hold on Bactrim. If things worsen he will have it to take. Wait to check PSA until fully recovered and not after a bike ride. Flomax discussed for chronic issue but he wants to hold off. The above was discussed and understanding was expressed. Marshall Baez DO documented in this encounter Plan of Treatment Upcoming Encounters Date Type Department Care Team (Latest Contact Info) Description 05/17/2024 11:15 AM EDT Office Visit Dermatology [facility] [place] [address] [place] [address] Aashish Hooper MD [address] [place] [address] 07/23/2024 10:40 AM EDT Hospital Encounter OR [facility], Operating Room, [facility] - 4th Floor [address] [place] [address] Heena Medel MD [address] [place] [address] 07/23/2024 10:40 AM EDT - 07/23/2024 12:56 PM EDT Surgery OR [facility], Operating Room, [facility] - 4th Floor [address] [place] [address] Heena Medel MD [address] [place] [address] COLONOSCOPY, FLEXIBLE; WITH ENDOSCOPIC MUCOSAL RESECTION 11/30/2024 7:40 AM EST Office [facility] [place] [address] [facility] [place] [address] Fernanda Gonzalez MD [address] [facility] [place] [address] Scheduled Orders Name Type Priority Associated Diagnoses Orde r Schedule PSA Lab Routine Screening PSA (prostate specific antigen) Expected: 04/14/2024 (Approximate), Expires: 04/14/2025 Scheduled Procedures Name Priority Associated Diagnoses Date/Ti [...] as of this encounter Visit Diagnoses Diagnosis Acute prostatitis- Primary Screening PSA (prostate specific antigen) Special screening for malignant neoplasm of prostate Polyp of large intestine documented in this encounter Care Teams Probation Agent Relationship Specialty Start Date End Date Marshall Baez DO [address] [place] [address] PCP - General Family Medicine 09/14/13 documented as of this encounter
--- OUTSIDE RECORDS SUMMARY | 2024-05-02 23:04 | External Medical Summary | Summary of Care ---
Author Name Unknown Organization [facility] Address [address] [place] [address] Phone [phone] Care Team Providers Care Metal Sheet Roller Operator Name Role Phone Marshall Baez DO Primary Care Provider [phone] Reason for Visit * Reason Comments eRx-Medication Refill Encounter Details Date Type Department Care Team (Late st Contact Info) Description 11/15/2023 Refill Family Practice [facility] [place] [address] Marshall Baez DO 200 [facility] [place] [address] Encounter for long-term (current) use of medications* Allergies No known active allergiesdocumented as of this encounter (statuses as of 11/19/2023) Medications Medication Sig Dispensed Refills Start Date End Date Status Diclofenac Sodium (VOLTAREN) 1 % gel Place 2 g topically on the skin 4 times a day. To affected area as directed. 200 g 5 04/28/2019 Active Additional Information Patient not taking.Reported on 07/06/2021 Hydrocortisone (Perianal) 2.5 % External Cream Administer into the rectum 2 times a day. 28 g 1 07/06/2021 Active Sildenafil Citrate 20 MG Oral Tablet (Revatio) Take 2 to 5 tablets by mouth as needed for sexual relations 30 Tablet 3 11/26/2022 Active Atorvastatin Calcium 40 MG Oral Tablet (Lipitor) TAKE ONE TABLET BY MOUTH EVERY DAY IN THE MORNING 90 Tablet 0 11/19/2023 Active Atorvastatin Calcium 40 MG Oral Tablet (Lipitor) Take by mouth 1 Tablet in the morning. 90 Tablet 3 08/05/2022 4 Discontinued documented as of this encounter (statuses as of 11/19/2023) Active Problems Problem Noted Date Diagnosed Date ADVANCE DIRECTIVE INFORMATION 11/08/2008 Overview: No, Advance Directive brochure offered , patient declined. documented as of this encounter (statuses as of 11/19/2023) Immunizations Name Administration Dates Next Due COVID-19 mRNA, LNP-s, No Pre serve, 2-Dose Series (Moderna) 03/20/2021,02/16/2021 COVID-19, MRNA-LNP, 23-24, P F, 30 MCG/0.3 mL, 12 YRS AND ABOVE, IM ([facility]) 09/13/2023 COVID-19, mRNA, LNP-s, PF, B ooster, 100mcg/0.5mg (Moderna) 04/23/2022,10/15/2021 Seasonal Influenza Virus Vac cine, Unspecified Formulation [...] beer Hunger Vital Sign Answer Date Recorded Within the past 12 months, y ou worried that your food would run out before you got the money to buy more. Never true 12/27/19 21 Within the past 12 months, t he food you bought just didn't last and you didn't have money to get more. Never true 12/27/2020 Sex and Gender Information Value Date Recorded Sex Assigned at Male 11/19/2023 10:10 AM EST Gender Identity Male 11/19/2023 10:10 AM EST Sexual Orientation Straight 11/19/2023 10 :10 AM EST Job Start Date Occupation Industry Not on file Not on file Not on file documented as of this encounter Miscellaneous Notes * Telephone Encounter - Nicole Easley PA-C - 11/19/2023 10:10 AM ESTSigned Prescriptions: Disp Refills Atorvastatin Calcium 40 MG Oral Tablet (Li*90 Tab*0 Sig: TAKE ONE TABLET BY MOUTH EVERY DAY IN THE MORNING Authorizing Provider: NICOLE EASLEY * Telephone Encounter - Rose Marie Gan kitchen runner - 11/19/2023 8:40 AM EST Pending Prescriptions: Disp Refills Atorvastatin Calcium 40 MG Oral Tablet (Li*90 Tab*0 Sig: TAKE ONE TABLET BY MOUTH EVERY DAY IN THE MORNING * Telephone Encounter - Rose Marie Gan kitchen runner - 11/19/2023 8:35 AM EST Received message from [facility] regarding patient needing appointment and labs. Placed call to patient todevene. Pt was agreeable to set up office visit. Patient scheduled for 11/27/2023. Pt wants to do labs that day as he does not want to make a separate trip since the appt is so close Thank you for your assistance Rose Marie [address] Freight Conductor II [facility] (Formerly [facility]) 11/19/2023,8:35 AM * Telephone Encounter - Glenda Zaidi RP - 11/18/2023 10:50 AM ESTPending Prescriptions: Disp Refills Atorvastatin Calcium 40 MG Oral Tablet (Li*90 Tab*0 Sig: TAKE ONE TABLET BY MOUTH EVERY DAY IN THE MORNING * Telephone Encounter - Glenda Zaidi [facility] - 11/18/2023 10:49 AM EST Unable to authorize medication refills for pended medication(s) at this time. Part of the protocol criteria used for refill authorization was not satisfied. Per refill protocol patient should have CMP and lipid panel on file within past year. Reviewed AMP report, Care Gaps/Health Maintenance, medications list, and for any routine labs typically ordered for this patient. Lab orders placed. Please contact patient to schedule office visit with PRIMARY CARE and advise of labs ordered for blood draw.. Recommend patient to fast if able for labs. Patient may still have water and regular medications. Advise to obtain labs before requesting the next refill. Last Visit: 07/10/2021 (in office), 07/06/2021 (telemedicine) Next Visit: Visit date not found After contacting patient, please forward request to Marshall Baez DO. Thanks, Glenda Zaidi Clinical Pharmacist [facility] ([facility]) [phone] 11/18/2023, 10:49 AM documented in this encounter Plan of Treatment Upcoming Encounters Date Type Department Care Team (Late st Contact Info) Description 11/27/2023 7:40 AM EST Office Visit Family Practice [facility] [address] Fernanda Gonzalez MD 200 [facility] [place] [address] Scheduled Orders Name Type Priority Associated Diagnoses Orde r Schedule COMPREHENSIVE METABOLIC PANEL Lab Routine Encounter for long-term (current) use of medications Expected: 11/25/2023 (Approximate), Expires: 11/18/2024 LIPID PANEL WITH DIRECT LDL IF TG IS HIGH Lab Routine Encounter for long-term (current) use of medications Expected: 11/25/2023 (Approximate), Expires: 11/18/2024 Scheduled Procedures Name Priority Associated Diagnoses Date/Ti me COLONOSCOPY FLEXIBLE PROXIMA L DIAGNOSTIC Recall Special screening for malignant neoplasms, colon Health Maintenance Due Date Last Done Comments Depression Screening 1970 Cologuard 2003 Fecal Occult Blood Test 2003 Sigmoidoscopy 2003 Pneumococcal Vaccine: 65+ Years (1 - PCV) 2023 Colonoscopy 10/19/2023 10/19/2013, 10/19/2013 Colorectal Cancer Screening 10/19/2023 Lipid Panel 07/09/2026 07/09/2021, 06/18, 03/01/2019, Additional history exists DTaP,Tdap,and Td Vaccines (3 - Td or Tdap) 02/11/2029 02/11/2019, 08/19/2008 Zoster Vaccines Completed 08/22/2021, 06/21/2021 COVID-19 Vaccine Completed 09/13/2023, 05/2022, 10/15/2021, Additional history exists Influenza Vaccine (FLU shot) Completed , 09/16/2022, 09/02/2020, Additional history exists GARDASIL-HPV IMMUNIZATION SERIES Aged Out No longer [...] Diagnosis Encounter for long-term (current) use of medications- Primary Encounter for long-term (current) use of other medications documented in this encounter Care Teams Metal Sheet Roller Operator Relationship Specialty Start Date End Date Marshall Baez DO [address] [place] [address] PCP - General Family Medicine 09/14/13 documented as of this encounter
--- OUTSIDE RECORDS SUMMARY | 2024-05-02 23:04 | External Medical Summary | Summary of Care ---
Author Name Unknown Organization [facility] Address [address] [place] [address] Phone [phone] Care Team Providers Care Stretcher Helper Name Role Phone Marshall Baez DO Primary Care Provider [phone] Reason for Visit * Reason Onset Date Comments Medication Refill 11/19/2023 Encounter Details Date Type Department Care Team (Late st Contact Info) Description 11/19/2023 Refill Family Practice [facility] [address] [facility] [place] [address] Marshall Baez DO [address] [facility] [place] [address] Allergies No known active allergiesdocumented as of this encounter (statuses as of 11/21/2023) Medications Medication Sig Dispensed Refills Start Date End Date Status Diclofenac Sodium (VOLTAREN) 1 % gel Place 2 g topically on the skin 4 times a day. To affected area as directed. 200 g 5 04/28/2019 Active Additional Information Patient not taking.Reported on 07/06/2021 Hydrocortisone (Perianal) 2.5 % External Cream Administer into the rectum 2 times a day. 28 g 1 07/06/2021 Active Atorvastatin Calcium 40 MG Oral Tablet (Lipitor) TAKE ONE TABLET BY MOUTH EVERY DAY IN THE MORNING 90 Tablet 0 11/19/2023 Active Sildenafil Citrate 20 MG Oral Tablet (Revatio) Take 2 to 5 tablets by mouth as needed for sexual relations 30 Tablet 3 11/26/2022 11/19/2023 Discontinue d(Refill) documented as of this encounter (statuses as of 11/21/2023) Active Problems Problem Noted Date Diagnosed Date ADVANCE DIRECTIVE INFORMATION 11/08/2008 Overview: No, Advance Directive brochure offered , patient declined. documented as of this encounter (statuses as of 11/21/2023) Immunizations Name Administration Dates Next Due COVID-19 mRNA, LNP-s, No Pre serve, 2-Dose Series (Moderna) 03/20/2021,02/16/2021 COVID-19, MRNA-LNP, 23-24, P F, 30 MCG/0.3 mL, 12 YRS AND ABOVE, IM [facility] 09/13/2023 COVID-19, mRNA, LNP-s, PF, B [...] encounter Miscellaneous Notes * Telephone Encounter - Karolina Sarmiento [facility] - 11/21/2023 6:10 AM EST Refused Prescriptions: Disp Refills Atorvastatin Calcium 40 MG Oral Tablet (Li*90 Tab*3 Sig: Take 1Tablet by mouth in the morning.Refused By: KAROLINA SARMIENTO for Refusal: Duplicate Request documented in this encounter Plan of Treatment Upcoming Encounters Date Type Department Care Team (Late st Contact Info) Description 11/27/2023 7:40 AM EST Office Visit Family Practice [facility] [address] [facility] [place] [address] Fernanda Gonzalez MD [address] [facility] [place] [address] Scheduled Procedures Name Priority Associated Diagnoses Date/Ti [...] filedocumented as of this encounter Care Teams Stretcher Helper Relationship Specialty Start Date End Date Marshall Baez DO [address] [place] [address] PCP - General Family Medicine 09/14/13 documented as of this encounter
--- OUTSIDE RECORDS SUMMARY | 2024-05-02 23:04 | External Medical Summary ---
Author Name Unknown Address Unknown Organization K[facility] [address] [place] [address] Laboratory Report Ordering Provider Test Date Status KING RIZVI 11/27/2023 08:13:19 Final Observation Date Value Abnormality Reference (Units ) Status BUN 11/27/2023 08:13:19 19 6-20 (mg/dL) Final Creatinine 11/27/2023 08:13:19 1.2 0.6-1.2 (mg/dL) Final Glomerular filtration rate/1.73 sq M.predicted [Volume Rate/Area] in Serum, Plasma or Blood by Creatinine-based formula (CKD-EPI) 11/27/2023 08:13:19 66 >=60 (mL/min) Final eGFR is calculated based on the CKD-EPI 2020 equation SODIUM 11/27/2023 08:13:19 139 135-146 (m mol/L) Final Potassium 11/27/2023 08:13:19 4.2 3.5-5.1 (m mol/L) Final Cl 11/27/2023 08:13:19 102 98-107 (mm ol/L) Final CO2 11/27/2023 08:13:19 28 22-32 (mmo l/L) Final Anion gap 11/27/2023 08:13:19 9 7-15 (mmol /L) Final Glucose 11/27/2023 08:13:19 92 70-120 (mg /dL) Final Albumin 11/27/2023 08:13:19 4.7 3.8-5.0 (g /dL) Final AST (Aspartate aminotransferase) 11/27/2023 08:13:19 21 10-50 (U/L) Final Alk Phos 11/27/2023 08:13:19 91 35-130 (U/ L) Final Bilirubin, Total 11/27/2023 08:13:19 0.9 <=1 .2 (mg/dL) Final Calcium 11/27/2023 08:13:19 9.4 8.4-10.2 ( mg/dL) Final Protein 11/27/2023 08:13:19 7.4 6.0-8.3 (g /dL) Final ALT (Alanine aminotransferase) 11/27/2023 08:13:19 17 10-50 (U/L) Final Performing Location [facility] [address] [place] [address]
--- OUTSIDE RECORDS SUMMARY | 2024-05-02 23:04 | External Medical Summary | Summary of Care ---
Author Name Unknown Organization [facility] Address [address] [place] [address] Phone [phone] Care Team Providers Care Chief Design Branch Name Role Phone NestorMarshall Shira RIZVI Primary Care Provider [phone] Reason for Referral * Evaluate & Treat - Unlimited Visits (Within 30 days (routine)) - Pending Review Specialty Diagnoses / Procedures Referred By Michelle laughlin Referred To Contact Dermatology Diagnoses Multiple nevi Fernanda Gonzalez MD [address] [place] [address] Referral ID Status Reason Start Date Expiration Date Visits Requested Visits Authorized [id number] Pending Review Specialty Services Required 11/27/[phone] Question Answer Referral Priority Within 30 days (routine) Where should this appointment be scheduled? [facility] Are you referring the patient for Mohs Surgery and have a current positive skin cancer biopsy result? No What is the reason for the patient referral? Rash/Skin Check/Eval of Lesion or Mole * Ancillary Services (Within 30 days (routine)) - Pending Review Specialty Diagnoses / Procedures Referred By Michelle laughlin Referred To Contact Gastroenterology Diagnoses Special screening for malignant neoplasms, colon Fernanda Gonzalez MD [address] [place] [address] Referral ID Status Reason Start Date Expiration Date Visits Requested Visits Authorized [id number] Pending Review Ancillary Services Required 11/27/[phone] Question Answer Referral Priority Within 30 days (routine) Where should this appointment be scheduled? [facility] Comments ALERT: Do not order for pediatric patients (18 years or younger). Cancel off screen and order PEDS GASTROENTEROLOGY CONSULT (Type: 1 visit only-Evaluate and Treat) The following Pt. Instructions are available: - Gastro Colonoscopy Prep Instructions [77814] - Gastro Colonoscopy Prep Instructions ([place] Citizen Version) [00132] Go to the Pt. Instructions section within the Visit Navigator to access. Colonoscopy ASGE Guidelines: Average risk screening (begin at age 50, 10 year intervals) ADDITIONAL INFORMATION 1. Is the patient on Coumadin? No 2. Is the patient on Pradaxa? No Reason for Visit * Reason Comments Physical-Exam Encounter Details Date Type Department Care Team (Late st Contact Info) Description 11/27/2023 7:40 AM EST Office Visit [address] [place] [address] Fernanda Gonzalez MD [address] [place] [address] Encounter for routine adult medical examination*; Special screening for malignant neoplasms, colon; Need for pneumococcal vaccination; Multiple nevi; Seborrheic keratosis; Mixed dyslipidemia Allergies No known active allergiesdocumented as of [...] sexual relations 20 Tablet 0 11/21/2023 Active Diclofenac Sodium (VOLTAREN) 1 % gel Place 2 g topically on the skin 4 times a day. To affected area as directed. 200 g 5 04/28/2019 11/27/2023 Discontinued (Medication List Clean Up) Hydrocortisone (Perianal) 2.5 % External Cream Administer into the rectum 2 times a day. 28 g 1 07/06/2021 11/27/2023 Discontinued (Medication List Clean Up) documented as of this encounter (statuses as [...] MCG/0.3 mL, 12 YRS AND ABOVE, IM [facility] 09/13/2023 COVID-19, mRNA, LNP-s, PF, B [...] Date Smoking Tobacco: Never Smokeless Tobacco: Never Tobacco Cessation:Counseling Given: Not Answered Alcohol Use Standard Drinks/Week Comments Yes 0.8 [...] Sign Reading Time Taken Comments Blood Pressure 124/76 11/27/2023 7:37 AM EST Pulse 56 11/27/2023 7:37 AM EST Temperature 36.3 C (97.3 F) 11/27/2023 7:37 AM ES T Respiratory Rate 18 11/27/2023 7:37 AM EST Oxygen Saturation 97% 11/27/2023 7:37 AM EST Inhaled Oxygen Concentration - - Weight 82.6 kg (182 lb) 11/27/2023 7:37 AM EST Height 177.8 cm (5' 10") 11/27/2023 7:37 AM EST Body Mass Index 26.11 11/27/2023 7:37 AM EST documented in this encounter Patient Instructions * Patient Instructions* Becca Briggs LPN - 11/27/2023 7:40 AM EST Images from the original note were not included. Colorectal Cancer Screening Colorectal cancer (cancer in the colon or rectum) is a leading cause of cancer deaths in the [place] But it doesnt have to be. When this cancer is found and removed early, the chances of a full recovery are very good. Because colorectal cancer rarely causes symptoms in its early stages, screening for the disease is important. Its even more crucial if you have risk factors for the disease. Learn more about colorectal cancer and its risk factors. Then talk to your healthcare provider about being screened. You could be saving your own life. Risk factors for colorectal cancer Your risk of having colorectal cancer increases if you: Are 50 years of age or older Have a family history or personal history of colorectal cancer or polyps Have a personal history of type 2 diabetes, Crohns disease, or ulcerative colitis Have an inherited genetic syndrome like Jennings syndrome (also known as HNPCC) or familial adenomatous polyposis (FAP) Are very overweight Are not physically active Smoke Drink a lot of alcohol Eat a lot of red or processed meat The colon and rectum Waste from food you eat enters the colon from the small intestine. As it travels through the colon,the waste (stool) loses water and becomes more solid. Intestinal muscles push it toward the sigmoid--the last section of the colon. Stool then moves into the rectum, where its stored until its ready to leave the body during a bowel movement. How cancer develops Polyps are growths that form on the inner lining of the colon or rectum. Most are benign, which means they arent cancerous. But over time, some polyps can become cancer (malignant). This happens when cells in these polyps begin growing abnormally. In time, malignant cells invade more and more ofthe colon and rectum. The cancer may also spread to nearby organs or lymph nodes or to other parts of the body. Finding and removing polyps can help prevent cancer from ever forming. Your screening Screening means looking for a health problem before you have symptoms. During screening for colorectal cancer, your healthcare provider will ask about your health history, examine you, and do one or more tests. History and exam The history and exam involve the following: Health history. Your healthcare provider will ask about your health history. Mention if a family member has had colon cancer or polyps. Also mention any health problems you have had in the past. Digital rectal exam (CHE). During a CHE, the healthcare provider inserts a lubricated gloved fingerinto the rectum. The test is painless and takes less than a minute. Healthcare providers agree thatthis test alone is not enough to screen for colorectal cancer. Screening test choices: Fecal occult blood test (FOBT) or fecal immunochemical test (FIT) These tests check for occult blood in stool (blood you cant see). Hidden blood may be a sign of colon polyps or cancer. A small sample of stool is tested for blood in a laboratory. Most often, youcollect this sample at home using a kit your healthcare provider gives you. Follow the instructionscarefully for using this kit. You might need to avoid certain foods and medicines before the test, as directed. Barium enema with contrast (double-contrast barium enema) This test uses X-rays to provide images of the entire colon and rectum. The day before this test, you will need to do a bowel prep to clean out the colon and rectum. A bowel prep is a liquid diet plus strong laxatives or enemas. You will be awake for the test, but you may be given medicine to help you relax. At the start of the test, a radiologist (a healthcare provider who specializes in imagingtests) places a soft tube into the rectum. The tube is used to fill the colon with a contrast liquid (barium) and air. This can be uncomfortable for some people. The liquid helps the colon show up clearly on the X-rays. Because the test uses X-rays, it exposes you to a small amount of radiation. Virtual colonoscopy This exam is also called a CT colonography. It uses a series of X-ray photographs to create a 3-D view of the colon and rectum. The day before the test, you will need to do a bowel prep to clean out your colon. Your healthcare provider will give you instructions on how to do this. During the procedure, you will lie on a table that is part of a special X-ray machine called a CT scanner. A small tube will be placed into your rectum to fill the colon and rectum with air. This can be uncomfortable for some people. Then, the table will move into the machine and pictures will be taken of your colonand rectum. A computer will combine these photos to create a 3-D picture. Because the test uses X-rays, it exposes you to a small amount of radiation. Cologuard Cologuard is an easy to use, noninvasive colon cancer screening test that you can use in the privacy of your own home. It identifies altered DNA and/or blood in stool, which are associated with the possibility of colon cancer or precancer. DNA is continuously shed from cells in the intestinal lining, where it is passed into the stool. Ifcancer or precancer is present, abnormal cells will shed into the colon and stool along with normalcells. A molecular biology process is used to capture specific pieces of DNA for further analysis. Scope exams Here are two types of scope exams: Colonoscopy. This test can be used to find and remove polyps anywhere in the colon or rectum. The day before the test, you will do a bowel prep. This is a liquid diet plus a strong laxative solution or an enema. The bowel prep will cleanse your colon. You will be given instructions for this. Just before the test, you are given a medicine to make you sleepy. Then, a long, flexible, lighted tube called a colonoscope is gently inserted into the rectum and guided through the entire colon. Images ofthe colon are viewed on a video screen. Any polyps that are found are removed and sent to a lab fortesting. If a polyp cant be removed, a sample of tissue is taken and the polyp might be removed l ater during surgery. You will need to bring someone with you to drive you home after this test. Sigmoidoscopy. This test is similar to colonoscopy, but focuses only on the sigmoid colon and rectum. As with colonoscopy, bowel prep must be done the day before this test. It might not need to be ascomplete as the bowel prep for a colonoscopy. You are awake during the procedure, but you may be given medicine to help you relax. During the test, the healthcare provider guides a thin, flexible, lighted tube called a sigmoidoscope through your rectum and lower colon. The images are displayed on avideo screen. Polyps are removed, if possible, and sent to a lab for testing. Colonoscopy is the only screening test that lets your healthcare provider see the entire colon and rectum. This test also lets your healthcare provider remove any pieces of tissue that need to be looked at by a lab. If something suspicious is found using any other tests, you will likely need a colonoscopy. When to call your healthcare provider after a test Call your healthcare provider if you have any of the following after any screening test: Bleeding Fever of 100.4F (38C) or higher, or as directed by your healthcare provider Abdominal pain Vomiting Date Last Reviewed: 09/20/201519997238-8747 [employer]. [address] [place] [address]. All rights reserved. This information is not intended as a substitute for professional medical care. Always follow your healthcare professional's instructions. documented in this encounter Progress Notes * Fernanda Gonzalez MD - 11/27/2023 7:47 AM EST Subjective Chief Complaint Patient presents with Physical-Exam HPI: Nathaniel Delgadillo is a 63 year old male. The following issues were addressed today: Patient presents for annual exam. The patient's past medical history, surgical history, family history, social history, vaccination history, medications, and allergies were reviewed. Would like some moles looked at. Had seborrheic keratosis biopsied on his chest in 2007. Does not regularly wear sunscreen. Had multiple sunburns as a child. No family history of skin cancer. Currently taking atorvastatin 40mg. Was having some muscle pain with exercise so has been taking every 36 hours. Has CMP and lipid panel ordered in the chart that he will have drawn today. Exercises regularly, 3-4 days a week. When weather allows he bikes to work. Overall eats a healthy diet. Has never smoked. Colonoscopy due. Last in 2012 was normal, recommended repeat in 10 years. Agreeable to PCV-20 vaccination today. Review of Systems: See HPI Objective BP 124/76 | Pulse 56 | Temp 36.3 C (97.3 F) (Tympanic) | Resp 18 | Ht 1.778 m (5' 10") | Wt 82.6 kg (182 lb) | SpO2 97% | BMI 26.11 kg/m | BSA 2.02 m Wt Readings from Last 3 Encounters: 11/27/23 82.6 kg (182 lb) 07/10/21 83.1 kg (183 lb 1.9 oz) 02/11/19 85.1 kg (187 lb 9.6 oz) BP Readings from Last 3 Encounters: 11/27/23 124/76 07/10/21 118/62 02/11/19 124/70 General: Well-appearing, no acute distress Head: Normocephalic and atraumatic Eyes: No conjunctival injection, no scleral icterus, extraocular movements are intact Ears: External ear unremarkable, canals normal and tympanic membranes clear bilaterally Throat/Mouth: Oral mucosa pink and moist, tongue normal in appearance without lesions and with symmetrical movement, pharynx normal in appearance Neck: Supple, no lymphadenopathy Cardiovascular: Regular rate and rhythm, no murmur Respiratory: Good respiratory effort, breath sounds equal and clear to auscultation bilaterally Extremities: No edema Skin: Numerous scattered benign-appearing nevi on extremities and trunk, multiple seborrheic keratoses and koroma angiomas Neurological: Alert and oriented, no focal deficits noted Psychiatric: Appropriate mood and affect Assessment & Plan 1. Encounter for routine adult medical examination Age-appropriate health maintenance and screening recommendations were reviewed. The following recommendations were discussed and/or provided to patient in the after-visit summary: Avoidance of tobacco Being physically active with a goal of 150 to 300 minutes of moderate physical activity each week Eating a diet rich in fruits, vegetables, and whole grains and low in saturated/trans fat, red and processed meats, and highly processed foods and refined grain products Limiting alcohol consumption Avoidance of excess sun exposure, using sunscreen with SPF 30 or higher, and wearing sun protectiveclothing when appropriate 2. Special screening for malignant neoplasms, colon - COLONOSCOPY, GI REFERRAL OP 3. Need for pneumococcal vaccination - PNEUMOCOCCAL VACC, PCV20, IM ([id number]) 4. Multiple nevi Recommend establishing with dermatology for yearly skin checks given numerous nevi, history of sunburns and frequent sun exposure without use of sunscreen. Patient agreeable. Reviewed ABCDEs. - DERMATOLOGY REFERRAL OP 5. Seborrheic keratosis Reassured benign. 6. Mixed dyslipidemia Update labs. Continue statin. Follow Up: Return in about 1 year (around 11/27/2024) for annual physical. | Check-out note: Colonoscopy ordered. Dermatology referral. Labs today. This note was electronically signed by Fernanda Gonzalez MD documented in this encounter Nursing Notes * Becca Briggs LPN - 11/27/2023 7:36 AM EST Nathaniel Delgadillo presents for annual physical exam. Medications & HM reviewed. documented in this encounter Plan of Treatment Upcoming Encounters Date Type Department Care Team (Late st Contact Info) Description 11/30/2024 7:40 AM EST Office Visit Family Practice [facility] [place] [address] [place] [address] Fernanda Gonzalez MD [address] [place] [id number] 11/30/2024 10:00 AM EST Office Visit Dermatology [facility] [place] [address] [place] [address] Aashish Hooper MD [address] [place] [id number] Scheduled Procedures Name Priority Associated Diagnoses Date/Ti me COLONOSCOPY FLEXIBLE PROXIMA L DIAGNOSTIC Recall Special screening for malignant neoplasms, colon Scheduled Referrals Name Type Priority Associated Diagnoses Orde r Schedule COLONOSCOPY, GI REFERRAL OP Referral Within 30 days (routine) Special screening for malignant neoplasms, colon Ordered: 11/27/2023 DERMATOLOGY REFERRAL OP Referral Within 30 days (routine) Multiple nevi Ordered: 11/27/2023 Health Maintenance Due Date Last Done Comments Depression Screening 1970 Cologuard 2003 Fecal Occult Blood Test 2003 Sigmoidoscopy 2003 Colonoscopy 10/19/2023 10/19/2013, 10/19/2013 Colorectal Cancer Screening 10/19/2023 Diabetes Screening 01/24/2025 01/24/2022, 0 03/01/2019, 09/14/2013 Lipid Panel 07/09/2026 07/09/2021, 06/18, 03/01/2019, Additional [...] this encounter Visit Diagnoses Diagnosis Encounter for routine adult medical examination- Primary Special screening for malignant neoplasms, colon Need for pneumococcal vaccination Need for prophylactic vaccination against streptococcus pneumoniae (pneumococcus) Multiple nevi Benign neoplasm of skin, site unspecified Seborrheic keratosis Other seborrheic keratosis Mixed dyslipidemia Mixed hyperlipidemia documented in this encounter Care Teams Chief Design Branch Relationship Specialty Start Date End Date Marshall Baez DO [address] [place] [address] PCP - General Family Medicine 09/14/13 documented as of this encounter
--- OUTSIDE RECORDS SUMMARY | 2024-05-02 23:04 | External Medical Summary | Summary of Care ---
Author Name Unknown Organization [facility] Address [address] [place] [address] Phone [phone] Care Team Providers Care Sports Centre Manager Name Role Phone Rachel Bear DO Primary Care Provider [phone] Reason for Visit * Reason Onset Date Comments Medication Refill 11/19/2023 Encounter Details Date Type Department Care Team (Late st Contact Info) Description 11/19/2023 Refill Family Practice [facility] [address] [facility] [place] [address] Rachel Bear DO [address] [facility] [place] [address] Allergies No known active allergiesdocumented as of [...] sexual relations 20 Tablet 0 11/21/2023 Active Sildenafil Citrate 20 MG Oral Tablet [...] MCG/0.3 mL, 12 YRS AND ABOVE, [facility] 09/13/2023 COVID-19, mRNA, LNP-s, PF, B ooster, [...] Notes * Telephone Encounter - Karolina Sarmiento RP - 11/21/2023 6:11 AM ESTSigned Prescriptions: Disp Refills Sildenafil Citrate 20 MG Oral Tablet (Itzel*20 Tab*0 Sig: Take 2 to 5 tablets by mouth as needed for sexual relations Authorizing Provider: RACHEL BEAR Ordering User: KAROLINA SARMIENTO * Telephone Encounter - Karolina Sarmiento RPh - 11/21/2023 6:10 AM EST RX authorized. Zero refills given until upcoming ov. Thank you, Karolina Sarmiento, GuerlineD. Clinical Pharmacist [facility] ([facility] (formerly Telepharm[facility]) 11/21/2023, 6:10 AM documented in this encounter Plan of Treatment Upcoming Encounters Date Type Department Care Team (Late st Contact Info) Description 11/27/2023 7:40 AM EST Office Visit [facility] [address] [place] [address] Fernanda Gonzalez MD [address] [place] [address] Scheduled Procedures Name Priority Associated Diagnoses Date/Ti [...] filedocumented as of this encounter Care Teams Sports Centre Manager Relationship Specialty Start Date End Date Rachel Bear DO [address] [place] [address] PCP - General Family Medicine 09/14/13 documented as of this encounter
--- OUTSIDE RECORDS SUMMARY | 2024-05-02 23:04 | External Medical Summary ---
Author Name Unknown Address Unknown Organization K01:[facility] [place] [address] [facility] [address] Laboratory Report Ordering Provider Test Date Status KING RIZVI 11/27/2023 08:13:19 Final Observation Date Value Abnormality Reference (Units ) Status Triglyceride 11/27/2023 08:13:19 122 <=174 ( mg/dL) Final Triglyceride Reference Range s (mg/dL):
<150 Acceptable
150-174 Borderline high
175-499 High
>=500 Very high Cholesterol 11/27/2023 08:13:19 164 <200 (mg /dL) Final Total Cholesterol Reference Ranges (mg/dL):
<200 Desirable
200-239 Borderline high
>=240 High HDL 11/27/2023 08:13:19 60 >39 (mg/dL ) Final HDL Cholesterol Reference Ra nges (mg/dL):
>=60 High (Desirable)
<50 Low (Undesirable) For Females
<40 Low (Undesirable) For Males NON-HDL CHOLESTEROL 11/27/2023 08:13:19 104 <=159 (mg/dL) Final Non-HDL Cholesterol Referenc e Range (mg/dL):
<100 Target level for high risk ASCVD patient
<130 Optimal for general population
130-159 Near optimal for general population
160-189 Borderline High
190-219 High
>=220 Very High LDL, (calculated) 11/27/2023 08:13:19 80 <= 129 (mg/dL) Final LDL Cholesterol Reference Ra nges (mg/dL):
<70 Target level for high risk ASCVD patient
<100 Optimal for general population
100-129 Near optimal for general population
130-159 Borderline high
160-189 High
>=190 Very high Performing Location [facility] [place] [address] [facility] [id number]
[2024-05-02] MEDS: SODIUM CHLORIDE 0.9% 1,000 ML IV ONE (23:30)
[2024-05-02 23:43] LABS: Basophils # (auto) 0.02 K/uL (0.00-0.20); Basophils % (auto) 0.2 %; Eosinophils # (auto) 0.06 K/uL (0.00-0.50); Eosinophils % (auto) 0.7 %; Hemoglobin 12.2 g/dl (14.0-18.0); Immature Granulocytes # (auto) 0.02 K/uL (0.01-0.20); Immature Granulocytes % (auto) 0.2 %; Lymphocytes # (auto) 1.38 K/uL (1.20-3.40); Lymphocytes % (auto) 15.3 %; Mean Corpuscular Hemoglobin 30.9 pg (25.0-34.0); Mean Corpuscular Hgb Conc 33.9 g/dL (32.0-36.0); Mean Corpuscular Volume 91.1 fL (80.0-100.0); Mean Platelet Volume 9.5 fL (9.4-12.4); Monocytes # (auto) 0.79 K/uL (0.11-0.59); Monocytes % (auto) 8.8 %; Neutrophils # (auto) 6.75 K/uL (1.40-6.50); Neutrophils % (auto) 74.8 %; Platelet Count 162 K/uL (130-400); RDW Coefficient of Variation 12.4 % (11.5-14.5); RDW Standard Deviation 41.1 fL (36.4-46.3); Red Blood Count 3.95 M/uL (4.70-6.10); White Blood Count 9.02 K/ul (4.8-10.8)
[2024-05-03 00:01] LABS: Albumin Globulin Ratio 1.3 (0.9-2); Albumin Level 4.6 gm/dl (3.4-5.0); BUN Creatinine Ratio 15.2 (10-20); Bilirubin Direct 0.1 mg/dl (0-0.2); Bilirubin,Total 0.6 mg/dl (0.2-1.0); Calcium 9.6 mg/dl (8.6-10.3); Creatinine Clr Calc Pharmacy 19.7 ml/min; Est GFR (Non-African American) 15.5 ml/min; Globulin 3.5 gm/dl (2.5-4.0); Magnesium 2.1 mg/dl (1.7-2.4); Potassium 4.7 mmol/L (3.5-5.1); Total Protein 8.1 gm/dl (6.0-8.3)
[2024-05-03 00:14] LABS: Appearance Urine Clear (Clear); Bacteria Urine Automated None Seen (None Seen); Bilirubin Urine Negative (Negative); Blood Urine Negative (Negative); Color Urine Yellow; Glucose Urine UA Negative (Negative); Ketones Urine Trace (Negative); Leukocyte Esterase Urine Negative (Negative); Nitrite Urine Negative (Negative); Protein Urine 1+ (Negative); RBC Urine Automated 0-2 /hpf (0-2); Specific Gravity Urine 1.012 (1.000-1.030); Urobilinogen Urine Negative (Negative); WBC Urine Automated 0-5 /hpf (0-5); White Blood Cell Casts Urine Present /lpf (None Prsent); pH Urine 5.5 (4.5-7.5)
[2024-05-03 00:17] LABS: Thyroid Stimulating Hormone 1.743 uIu/ml (0.300-4.500)
[2024-05-03 00:20] LABS: Prothrombin Time 11.1 Seconds (9.0-12.0)
--- NOTE | 2024-05-03 01:43 | Emergency Department Note ---
Impression & Plan Abdominal pain, lower, NATHALY (acute kidney injury) ED Provider Note ED Provider Note NAME: INDY SHOOK AGE:64 SEX: Male : 1960 ARRIVES VIA: Private vehicle INFORMANT: Patient ED PROVIDER(s): Clary Clark DO CHIEF COMPLAINT: Lower abdominal pain HPI: This is a 64-year-old male presents emergency room due to concern for worsening lower abdominal pain since Friday. Patient states a month ago he had had a colonoscopy with removal of polyps, but it felt well since then. He states shortly after that he had some similar lower abdominal pain although less severe and following a telehealth visit with his PCP was diagnosed with prostatitis. He took Bactrim for only 5 days because he felt unwell while taking it. He did not seek any further evaluation and no other antibiotics were ordered. He states he felt relatively well until Friday when he began having worsening lower abdominal pain again. No accompanying back pain, change in stools, vomiting, fevers or chills. Patient states he has had increased urination, and does have some relief of pain with urination. No prior history of bladder or kidney problems. No prior history of prostate problems. Patient did recently travel to [place] and did participate in a bike race where he rode 60 miles. Patient states he does typically ride 30 to 40 miles routinely. He denies any recent increase myalgias. Patient states he has been using NSAIDs for his pain recently. PAST MEDICAL HISTORY:See Below PAST SURGICAL HISTORY:See Below FAMILY HISTORY:See Below SOCIAL HISTORY:See Below HOME MEDICATIONS:See Below ALLERGIES:See Below VITALS:See Below PHYSICAL EXAMINATION: GENERAL: alert, uncomfortable appearing, well nourished, no distress, non-toxic EYE EXAM: normal conjunctiva, PERRL and EOM's grossly intact OROPHARYNX: no exudate, no erythema, lips, buccal mucosa, and tongue normal and mucous membranes are moist NECK: supple, no nuchal rigidity, no adenopathy, non-tender LUNGS: Clear to auscultation. Normal chest wall mechanics, no w/r/r HEART: no murmurs, S1 normal and S2 normal ABDOMEN: abdomen soft, discomfort with palpation in the suprapubic region, normo-active bowel sounds, no masses, no rebound or guarding. BACK: Back is symmetrical on inspection and there is no deformity, no midline tenderness, no CVA tenderness. SKIN: no rashes, petechiae, orbruising UPPER EXTREMITIES: upper extremities are grossly normal. FROM, nml pulses b/l. LOWER EXTREMITIES: No pitting edema. FROM, nml pulses b/l. NEURO EXAM: Normal sensorium, cranial nerves II-XII grossly intact, normal speech, no facial droop,nogross weakness of arms, no gross weakness of legs. Gross sensation intact. No ataxia. Vital Signs: reviewed and remarkable Differential Diagnosis: UTI, bladder stone, ureterolithiasis, diverticulitis, GI bleed, perforation, abscess, prostatitis, bowel obstruction, rhabdomyolysis, as well as others were considered MEDICAL DECISION MAKING: This is a 64-year-old male presents emergency department due to concern for persistent lower abdominal discomfort over the last 5 days. He was afebrile vital signs stable. Labs drawn and sent, IV established, EKG and chest ray performed bedside interpreted me and patient monitor on telemetry. Patient sent for CT of the abdomen and pelvis. He was given IV fluids, IV Tylenol, and IV fentanyl for pain. Patient noted to have significant NATHALY. I did compare to prior outpatient labs through his PCP. UA not suggestive of infection. No evidence of ureterolithiasis on CT. Unclear if NATHALY related to recent prostatitis and occult infection versus related to use of Bactrim and NSAIDs. CPK added and not suggestive of rhabdomyolysis. Patient updated on all results at bedside as well as need for further inpatient evaluation and treatment. He verbalized understanding. [facility]ation[facility]s): 0140: [facility] Ale[facility] for additional evaluation and management. ER Treatment Provided: See below Diagnostics Interpreted By Me: -ECG: Sinus bradycardia 57, normal axis, normal intervals, no acute ST/T wave changes -Cardiac Monitoring: An order was placed for continuous cardiac monitoring. The monitor shows a rate of 59] with sinus bradycardia rhythm. -Laboratory studies: As stated above and show below. -Imaging studies: X-ray Chest: A single view study of the chest was reviewed and was negative for cardiomegaly, focal infiltrate, effusion, pulmonary edema, or wide mediastinum. Triage Nursing Note Reviewed Prior/Outside Records Reviewed -prior outpatient labs through PCP reviewed Past Med/Surg History Problem List (Updated 05/03/24 @ 08:18 by Clary Clark, DO) NATHALY (acute kidney injury) (Acute) Abdominal pain, lower (Acute) Obstructive uropathy Social History Smoking Status: Former smoker Hx Alcohol Use: No Hx Substance Use: No Preferred Language: Azerbaijani Communication Ability: Effective Beliefs That Will Affect Care: None Current Living Situation: Spouse Feels Safe at Home: Yes Safety Concerns: Feels Safe At This Time Allergies Allergies Allergy/AdvReac Type Severity Reaction Status Date / Time No Known Allergies AdvReac Unknown Unverified 05/03/24 00:07 Home Meds Home Medications Medication Instructions Recorded Confirmed atorvastatin 40 mg tablet 40 mg PO DAILY 05/02/24 05/03/24 sildenafil (pulm.hypertension) 20 40 - 100 mg PO . NEEDED PRN 05/02/24 05/02/24 mg tablet sexual relations Results & Data (ED) Vital Signs Vital Signs - 24 hr 05/02/24 22:58 05/03/24 01:03 05/03/24 02:22 Temperature 36.6 C Temperature Source Temporal Artery Scan Pulse Rate 76 Pulse Rate [Finger] 84 Respiratory Rate 16 18 Respiratory Effort / Characteristics Non-Labored Respiratory Depth Normal Normal Respiratory Pattern Regular Blood Pressure 180/111 H Blood Pressure [Right Arm] 184/100 H 167/95 H Blood Pressure Mean 134 Blood Pressure Mean [Right Arm] 128 119 Pulse Oximetry 98 99 Oxygen Delivery Method Room Air Room Air Sepsis Recent Fever Within 48 Hours No Sepsis New/Unexplained Change in Mental Status No Sepsis Action Taken by Nursing No Action Required Laboratory Data 05/03/24 06:40 05/03/24 06:40 Lab Results 05/02/24 Range/Units 23:27 WBC 9.02 (4.8-10.8) K/ul RBC 3.95 L (4.70-6.10) M/uL Hgb 12.2 L (14.0-18.0) g/dl Hct 36.0 L (42.0-52.0) % MCV 91.1 (80.0-100.0) fL MCH 30.9 (25.0-34.0) pg MCHC 33.9 (32.0-36.0) g/dL RDW Std Deviation 41.1 (36.4-46.3) fL RDW Coeff of Deonna 12.4 (11.5-14.5) % Plt Count 162 (130-400) K/uL MPV 9.5 (9.4-12.4) fL Immature Gran % (Auto) 0.2 % Neut % (Auto) 74.8 % Lymph % (Auto) 15.3 % [place] % (Auto) 8.8 % Eos % (Auto) 0.7 % Baso % (Auto) 0.2 % Neut # (Auto) 6.75 H (1.40-6.50) K/uL Lymph # (Auto) 1.38 (1.20-3.40) K/uL [place] # (Auto) 0.79 H (0.11-0.59) K/uL Eos # (Auto) 0.06 (0.00-0.50) K/uL Baso # (Auto) 0.02 (0.00-0.20) K/uL Immature Gran # (Auto) 0.02 (0.01-0.20) K/uL PT 11.1 (9.0-12.0) Seconds INR 1.0 (0.9-1.1) Sodium 137 (136-145) mmol/L Potassium 4.7 (3.5-5.1) mmol/L Chloride 108 H (98-107) mmol/L Carbon Dioxide 17 L (21-32) mmol/L Anion Gap 12 H (3-11) BUN 58 H (6-23) mg/dl Creatinine 3.81 H (0.6-1.4) mg/dl Est Cr Clr Drug Dosing 19.7 ml/min Est GFR ( Amer) 18.0 ml/min Est GFR (Non-Af Amer) 15.5 ml/min BUN/Creatinine Ratio 15.2 (10-20) Glucose 105 H (70-99(Fasting)) mg/dl Calcium 9.6 (8.6-10.3) mg/dl Magnesium 2.1 (1.7-2.4) mg/dl Total Bilirubin 0.6 (0.2-1.0) mg/dl Direct Bilirubin 0.1 (0-0.2) mg/dl AST 15 (13-39) U/L ALT 11 (7-52) U/L Alkaline Phosphatase 66 (34-104) U/L Total Creatine Kinase 122 (30-223) U/L Troponin I High Sens 7.0 (0-20) pg/ml Total Protein 8.1 (6.0-8.3) gm/dl Albumin 4.6 (3.4-5.0) gm/dl Globulin 3.5 (2.5-4.0) gm/dl Albumin/Globulin Ratio 1.3 (0.9-2) Lipase 34 (11-82) U/L TSH 1.743 (0.300-4.500) uIu/ml Urine Color Yellow Urine Appearance Clear (Clear) Urine pH 5.5 (4.5-7.5) Ur Specific [place] 1.012 (1.000-1.030) Urine Protein 1+ H (Negative) Urine Glucose (UA) Negative (Negative) Urine Ketones Trace H (Negative) Urine Blood Negative (Negative) Urine Nitrite Negative (Negative) Urine Bilirubin Negative (Negative) Urine Urobilinogen Negative (Negative) Ur Leukocyte Esterase Negative (Negative) Urine WBC (Auto) 0-5 (0-5) /hpf Urine RBC (Auto) 0-2 (0-2) /hpf U Hyaline Cast (Auto) 3-5 H (0-2) /lpf U Epithel Cells (Auto) 6-10 H (0-2) /hpf Urine Bacteria (Auto) None Seen (None Seen) WBC Casts Present A (None Prsent) /lpf Urine Osmolality 366 L (500-800) mOsm/kg Administered Medications Discontinued Medications Clonidine HCl (Clonidine Hcl 0.1 Mg Tab) 0.1 mg PO NOW ONE Stop: 05/03/24 02:21 Last Admin: 05/03/24 04:17 Dose: Not Given Documented By: ANAHI Sodium Chloride (Nss) 1,000 mls @ 999 mls/hr IV .Q1H1M ONE Stop: 05/03/24 00:01 Last Infusion: 05/03/24 01:33 Dose: Infused Documented By: Admin: 05/02/24 23:30 Dose: 999 mls/hr Documented By: Sodium Chloride (Nss) 1,000 mls @ 125 mls/hr IV .Q8H TANIA Stop: 06/02/24 01:14 Last Infusion: 05/03/24 03:02 Dose: Infused Documented By: Admin: 05/03/24 02:05 Dose: 125 mls/hr Documented By: Acetaminophen (Ofirmev) 1,000 mg in 100 mls @ 400 mls/hr IV NOW STA Stop: 05/03/24 02:31 Last Infusion: 05/03/24 03:40 Dose: Infused Documented By: Admin: 05/03/24 03:03 Dose: 400 mls/hr Documented By: Lactated Ringer's (Lr) 1,000 mls @ 200 mls/hr IV .Q5H ONE Stop: 05/03/24 07:19 Last Infusion: 05/03/24 05:38 Dose: 200 mls/hr Documented By: Infusion: 05/03/24 04:24 Dose: 0 mls/hr Documented By: Admin: 05/03/24 03:02 Dose: 200 mls/hr Documented By: Ceftriaxone Sodium (Rocephin) 2,000 mg in 50 mls @ 100 mls/hr IV NOW STA Stop: 05/03/24 04:13 Last Infusion: 05/03/24 05:38 Dose: Infused Documented By: Admin: 05/03/24 04:24 Dose: 100 mls/hr Documented By: ANAHI Tamsulosin HCl (Tamsulosin Hcl 0.4 Mg Cap) 0.4 mg PO NOW ONE Stop: 05/03/24 03:13 Last Admin: 05/03/24 04:23 Dose: 0.4 mg Documented By: ANAHI Imaging Data Radiologist's Impression: Chest X-Ray 05/02/24 23:00 XR chest 1V portable CLINICAL HISTORY: abd pain TECHNIQUE: Single frontal radiograph of the chest was obtained. Comparison: None available at the time of this dictation. FINDINGS: No lines and tubes are seen. The cardiomediastinal silhouette is normal. The lungs are clear. No evidence of pleural effusion or pneumothorax. IMPRESSION: No acute chest disease. ACT 112: Negative or not required by law. Electronically signed by: Wesly Bernal M.D. 05/03/2024 7:03 AM Abdomen/Pelvis CT 05/03/24 01:06 Exam(s): CT ABDOMEN + PELVIS Without Contrast EXAM: CT Abdomen and Pelvis Without Intravenous Contrast CLINICAL HISTORY: Pain. TECHNIQUE: Axial computed tomography images of the abdomen and pelvis without intravenous contrast. CTDI is 17.9 mGy and DLP is 882.49 mGy-cm. Automated exposure control was utilized for the study. A dose lowering technique was utilized adhering to the principles of ALARA. COMPARISON: No relevant prior studies available. FINDINGS: Lung bases: Unremarkable. No mass. No consolidation. ABDOMEN: Liver: Unremarkable. Gallbladder and bile ducts: Unremarkable. No calcified stones. No ductal dilation. Pancreas: Unremarkable. No ductal dilation. Spleen: Unremarkable. No splenomegaly. Adrenals: Unremarkable. No mass. Kidneys and ureters: Moderate to severe bilateral hydronephrosis. This is concerning for ascending infection/acute pyelonephritis. No nephrolithiasis. Stomach and bowel: Unremarkable. No obstruction. No mucosal thickening. PELVIS: Appendix: Normal appendix. Bladder: Thickening of the bladder wall is concerning for cystitis. No stones. Reproductive: Marked prostate gland enlargement. ABDOMEN and PELVIS: Intraperitoneal space: Unremarkable. No free air. No significant fluid collection. Bones/joints: There are degenerative changes of the spine. No acute fracture. No dislocation. Soft tissues: Unremarkable. Vasculature: Unremarkable. No abdominal aortic aneurysm. Lymph nodes: Unremarkable. No enlarged lymph nodes. IMPRESSION: 1. Moderate to severe bilateral hydronephrosis. This is concerning for ascending infection/acute pyelonephritis. 2. Thickening of the bladder wall is concerning for cystitis. 3. Marked prostate gland enlargement. Electronically signed by: Destini Powell MD 05/03/24 02:18 AM Discharge Plan Visit Data Chief Complaint: GI Assessment Stated Complaint: ABDOMINAL PAIN, DECREASED PO INTAKE ED Provider: Clary Clark Discharge Problem: Abdominal pain, lower, NATHALY (acute kidney injury) Patient Disposition: Admitted As Inpatient Discharge Instructions Interventions: ED Discharge Assessment Last Done: 05/03/24 04:31
[2024-05-03] MEDS: SODIUM CHLORIDE 0.9% 1,000 ML IV SCH (02:05)
[2024-05-03] MEDS ORDERED: fentaNYL citrate PF 100 MCG/2 ML VIAL IV PRN (02:17)
--- NOTE | 2024-05-03 02:19 | CT Scan Report ---
Exam(s): CT ABDOMEN + PELVIS Without Contrast EXAM: CT Abdomen and Pelvis Without Intravenous Contrast CLINICAL HISTORY: Pain. TECHNIQUE: Axial computed tomography images of the abdomen and pelvis without intravenous contrast. CTDI is 17.9 mGy and DLP is 882.49 mGy-cm. Automated exposure control was utilized for the study. A dose lowering technique was utilized adhering to the principles of ALARA. COMPARISON: No relevant prior studies available. FINDINGS: Lung bases: Unremarkable. No mass. No consolidation. ABDOMEN: Liver: Unremarkable. Gallbladder and bile ducts: Unremarkable. No calcified stones. No ductal dilation. Pancreas: Unremarkable. No ductal dilation. Spleen: Unremarkable. No splenomegaly. Adrenals: Unremarkable. No mass. Kidneys and ureters: Moderate to severe bilateral hydronephrosis. This is concerning for ascending infection/acute pyelonephritis. No nephrolithiasis. Stomach and bowel: Unremarkable. No obstruction. No mucosal thickening. PELVIS: Appendix: Normal appendix. Bladder: Thickening of the bladder wall is concerning for cystitis. No stones. Reproductive: Marked prostate gland enlargement. ABDOMEN and PELVIS: Intraperitoneal space: Unremarkable. No free air. No significant fluid collection. Bones/joints: There are degenerative changes of the spine. No acute fracture. No dislocation. Soft tissues: Unremarkable. Vasculature: Unremarkable. No abdominal aortic aneurysm. Lymph nodes: Unremarkable. No enlarged lymph nodes. IMPRESSION: 1. Moderate to severe bilateral hydronephrosis. This is concerning for ascending infection/acute pyelonephritis. 2. Thickening of the bladder wall is concerning for cystitis. 3. Marked prostate gland enlargement. Electronically signed by: Destini Powell MD 05/03/24 02:18 AM
[2024-05-03] MEDS ORDERED: oxyCODONE HCL IR 5 MG TAB (IMMEDIATE RELEASE) PO PRN (02:21)
[2024-05-03] MEDS ORDERED: ACETAMINOPHEN 325 MG TAB PO PRN (02:21)
[2024-05-03] MEDS ORDERED: PROMETHAZINE HCL 6.25 MG in SODIUM CHLORIDE 0.9% 50 ML IV PRN (02:21)
[2024-05-03] MEDS ORDERED: HYDROmorphone INJ 0.5 MG/0.5 ML SYR IV PRN (02:21)
[2024-05-03] MEDS ORDERED: cefTRIAXone SODIUM 2,000 MG/50 ML BAG IV STA ×2 (02:41→03:45)
[2024-05-03] MEDS: LACTATED RINGER'S 1,000 ML IV ONE (03:02)
[2024-05-03] MEDS: ACETAMINOPHEN 1,000 MG/100 ML VIAL IV STA (03:03)
--- NOTE | 2024-05-03 03:42 | History & Physical Report ---
Date of Service May 03, 2024 Assessment & Plan (1) NATHALY (acute kidney injury): Plan: Multifactorial: Obstructive uropathy (BPH) causing hydronephrosis and pyelonephritis, no sepsis for now NSAID intake and recent Bactrim course for possible prostatitis possibly contributory Hypertensive urgency secondary to above hyperlipidemia on statin Rx New onset anemia possibly from transient post colonoscopy LGIB last month past tobacco abuse Medical telemetry given elevated BP Clonidine as needed SBP greater than 160 Flomax Maintain Vallejo catheter Urology consult Re: Obstructive uropathy, BPH Ceftriaxone for pyelonephritis Patient counseled regarding adverse effects of NSAIDs on kidney function and blood pressure. Anemia workup DVT prophylaxis. SCDs recent LGIB Full code Patient requesting updates providers. Ms. Winsome Morley, contact #[phone]. Text document was generated using numberFire voice recognition software. It may contain grammatical or spelling errors. Kindly contact undersigned for clarification of any documentation item in question. History of Present Illness Chief Complaint: Abdominal/flank pain Primary Care Provider: Marshall Baez DO History obtained from patient, family, and records. Medical history significant for hyperlipidemia, BPH, colonic polyps, internal hemorrhoids, past tobacco abuse. Patient had screening colonoscopy last month which showed hemorrhoids and multiple polyps status post resection. Painless hematochezia for a few days after procedure without unusual abdominal pain. 3 weeks ago, patient experienced prostate discomfort following a 55 mile bike ride. Patient seen at PCPs office. Patient prescribed Bactrim for possible prostatitis. Some relief of prostate discomfort. 2 weeks ago, patient noted bladder discomfort relieved by urination. Lower abdominal pain with some back radiation. Poor appetite and nausea symptoms. [id number] ibuprofen intake as needed for pain (as much as 18 tablets a day as per patient). Patient was ill throughout overseas travel to [place] last week with his . Worsening discomfort partially relieved by ibuprofen. Some chills, no hematuria. No headache, chest pain, no SOB. Patient proceeded directly to ER after return from [place] trip last night. SBP 180s upon arrival at the ER. 1 L of urine output emptied from bladder post Vallejo catheter insertion at the ER. Medical History as above Surgical History : Tonsillectomy, pilonidal cyst removal Family History : DM, heart disease, stroke, blood clots Personal/Social history : Past tobacco abuse, occasional EtOH intake, computer science professor Allergies Allergy/AdvReac Type Severity Reaction Status Date / Time No Known Allergies AdvReac Unknown Unverified 05/03/24 00:07 Home Medications Medication Instructions Recorded Confirmed Type atorvastatin 40 mg tablet 40 mg PO DAILY 05/02/24 05/03/24 History sildenafil (pulm.hypertension) 20 40 - 100 mg PO . NEEDED PRN 05/02/24 05/02/24 History mg tablet sexual relations Past Med/Surg History Problem List (Updated 05/03/24 @ 10:00 by NATALIE Sharpe) Bilateral hydronephrosis NATHALY (acute kidney injury) (Acute) Abdominal pain, lower (Acute) Obstructive uropathy Social History Smoking Status: Former smoker Hx Alcohol Use: No Hx Substance Use: No Preferred Language: Serbian Communication Ability: Effective Beliefs That Will Affect Care: None Current Living Situation: Spouse Feels Safe at Home: Yes Safety Concerns: Feels Safe At This Time Review of Systems Review of Systems: As per HPI, all other systems reviewed and negative Physical Exam Physical Exam: GENERAL: Comfortable, pleasant, no respiratory distress SKIN: Pallor, warm HEENT: Partial alopecia, pale palpebral conjunctivae, no ptosis, dry buccal mucosa NECK : Supple, no tenderness CHEST : CTA, no tenderness HEART : RRR, no obvious murmurs ABDOMEN: Some distention, minimal hypogastric tenderness EXTREMITIES : No LE swelling/tenderness, no other conspicuous deformities noted NEUROLOGIC : Coherent, no facial asymmetry, no other gross focality Results & Data Results & Data Vital Signs (Past 12 Hours) Vital Signs Temp Pulse Pulse Resp BP BP Pulse Ox 05/03/24 02:22 167/95 H 05/03/24 01:03 84 18 184/100 H 99 05/02/24 22:58 36.6 C 76 16 180/111 H 98 O2 Del Method 05/03/24 02:22 05/03/24 01:03 Room Air 05/02/24 22:58 Room Air Laboratory Results Laboratory Results WBC 9.02 K/ul (4.8-10.8) 05/02/24 23:27 RBC 3.95 M/uL (4.70-6.10) L 05/02/24 23:27 Hgb 12.2 g/dl (14.0-18.0) L 05/02/24: Hct 36.0 % (42.0-52.0) L 05/02/24: MCV 91.1 fL (80.0-100.0) 05/02/24: MCH 30.9 pg (25.0-34.0) 05/02/24: MCHC 33.9 g/dL (32.0-36.0) 05/02/24: RDW Std Deviation 41.1 fL (36.4-46.3) 05/02/24: RDW Coeff of Deonna 12.4 % (11.5-14.5) 05/02/24: Plt Count 162 K/uL (130-400) 05/02/24: MPV 9.5 fL (9.4-12.4) 05/02/24: Immature Gran % (Auto) 0.2 % 05/02/24: Neut % (Auto) 74.8 % 05/02/24: Lymph % (Auto) 15.3 % 05/02/24: [place] % (Auto) 8.8 % 05/02/24: Eos % (Auto) 0.7 % 05/02/24: Baso % (Auto) 0.2 % 05/02/24 Neut # (Auto) 6.75 K/uL (1.40-6.50) H 05/02/24: Lymph # (Auto) 1.38 K/uL (1.20-3.40) 05/02/24: [place] # (Auto) 0.79 K/uL (0.11-0.59) H 05/02/24: Eos # (Auto) 0.06 K/uL (0.00-0.50) 05/02/24: Baso # (Auto) 0.02 K/uL (0.00-0.20) 05/02/24: Immature Gran # (Auto) 0.02 K/uL (0.01-0.20) 05/02/24: PT 11.1 Seconds (9.0-12.0) 06/16/24 23:27 INR 1.0 (0.9-1.1) 05/02/24 23:27 Sodium 137 mmol/L (136-145) 05/02/24 23:27 Potassium 4.7 mmol/L (3.5-5.1) 05/02/24 23:27 Chloride 108 mmol/L (98-107) H 05/02/24 23:27 Carbon Dioxide 17 mmol/L (21-32) L 05/02/24 23:27 Anion Gap 12 (3-11) H 05/02/24 23:27 BUN 58 mg/dl (6-23) H 05/02/24 23:27 Creatinine 3.81 mg/dl (0.6-1.4) H 05/02/24 23:27 Est Cr Clr Drug Dosing 19.7 ml/min 05/02/24 23:27 Est GFR ( Amer) 18.0 ml/min 05/02/24 23: Est GFR (Non-Af Amer) 15.5 ml/min 05/02/24 23:27 BUN/Creatinine Ratio 15.2 (10-20) 05/02/24 23:27 Glucose 105 mg/dl (70-99(Fasting)) H 05/02/24 23:27 Calcium 9.6 mg/dl (8.6-10.3) 05/02/24 23: Magnesium 2.1 mg/dl (1.7-2.4) 05/02/24 23:27 Total Bilirubin 0.6 mg/dl (0.2-1.0) 05/02/24 23: Direct Bilirubin 0.1 mg/dl (0-0.2) 05/02/24 23:27 AST 15 U/L (13-39) 05/02/24 23:27 ALT 11 U/L (7-52) 05/02/24 23:27 Alkaline Phosphatase 66 U/L (34-104) 05/02/24 23:27 Total Creatine Kinase 122 U/L (30-223) 05/02/24 23:27 Troponin I High Sens 7.0 pg/ml (0-20) 05/02/24 23:27 Total Protein 8.1 gm/dl (6.0-8.3) 05/02/24 23:27 Albumin 4.6 gm/dl (3.4-5.0) 05/02/24 23: Globulin 3.5 gm/dl (2.5-4.0) 05/02/24: Albumin/Globulin Ratio 1.3 (0.9-2) 05/02/24 23: Lipase 34 U/L (11-82) 05/02/24 23: TSH 1.743 uIu/ml (0.300-4.500) 05/02/24: Urine Color Yellow 05/02/24 23: Urine Appearance Clear (Clear) 05/02/24 23: Urine pH 5.5 (4.5-7.5) 05/02/24: Ur Specific [place] 1.012 (1.000-1.030) 05/02/24: Urine Protein 1+ (Negative) H 05/02/24 23: Urine Glucose (UA) Negative (Negative) 05/02/24 23: Urine Ketones Trace (Negative) H 05/02/24 23: Urine Blood Negative (Negative) 05/02/24 23: Urine Nitrite Negative (Negative) 05/02/24 23: Urine Bilirubin Negative (Negative) 05/02/24 23: Urine Urobilinogen Negative (Negative) 05/02/24: Ur Leukocyte Esterase Negative (Negative) 05/02/24 23: Urine WBC (Auto) 0-5 /hpf (0-5) 05/02/24 23: Urine RBC (Auto) 0-2 /hpf (0-2) 05/02/24: U Hyaline Cast (Auto) 3-5 /lpf (0-2) H 05/02/24 23: U Epithel Cells (Auto) 6-10 /hpf (0-2) H 05/02/24 23:27 Urine Bacteria (Auto) None Seen (None Seen) 05/02/24: WBC Casts Present /lpf (None Prsent) A 05/02/24 23: Urine Osmolality 366 mOsm/kg (500-800) L 05/02/24: Impressions Abdomen/Pelvis CT 05/03/24 01:06 Exam(s): CT ABDOMEN + PELVIS Without Contrast EXAM: CT Abdomen and Pelvis Without Intravenous Contrast CLINICAL HISTORY: Pain. TECHNIQUE: Axial computed tomography images of the abdomen and pelvis without intravenous contrast. CTDI is 17.9 mGy and DLP is 882.49 mGy-cm. Automated exposure control was utilized for the study. A dose lowering technique was utilized adhering to the principles of ALARA. COMPARISON: No relevant prior studies available. FINDINGS: Lung bases: Unremarkable. No mass. No consolidation. ABDOMEN: Liver: Unremarkable. Gallbladder and bile ducts: Unremarkable. No calcified stones. No ductal dilation. Pancreas: Unremarkable. No ductal dilation. Spleen: Unremarkable. No splenomegaly. Adrenals: Unremarkable. No mass. Kidneys and ureters: Moderate to severe bilateral hydronephrosis. This is concerning for ascending infection/acute pyelonephritis. No nephrolithiasis. Stomach and bowel: Unremarkable. No obstruction. No mucosal thickening. PELVIS: Appendix: Normal appendix. Bladder: Thickening of the bladder wall is concerning for cystitis. No stones. Reproductive: Marked prostate gland enlargement. ABDOMEN and PELVIS: Intraperitoneal space: Unremarkable. No free air. No significant fluid collection. Bones/joints: There are degenerative changes of the spine. No acute fracture. No dislocation. Soft tissues: Unremarkable. Vasculature: Unremarkable. No abdominal aortic aneurysm. Lymph nodes: Unremarkable. No enlarged lymph nodes. IMPRESSION: 1. Moderate to severe bilateral hydronephrosis. This is concerning for ascending infection/acute pyelonephritis. 2. Thickening of the bladder wall is concerning for cystitis. 3. Marked prostate gland enlargement. Electronically signed by: Destini Powell MD 05/03/24 02:18 AM Diagnostic Findings Chest x-ray as per my interpretation no congestion EKG as per my interpretation : Rate 55, sinus bradycardia, normal axis, no ischemia
[2024-05-03] MEDS: cloNIDine HCL 0.1 MG TAB PO ONE ×2 (04:17→23:45)
[2024-05-03] MEDS: TAMSULOSIN HCL 0.4 MG CAP PO ONE (04:23)
[2024-05-03] MEDS: cefTRIAXone SODIUM 2,000 MG/50 ML BAG IV STA (04:24)
--- NOTE | 2024-05-03 05:56 | Urology Consultation ---
<Statement entered by Chacorta Chery MD - 05/03/24 06:24> NATHALY with bilateral hydronephrosis and distended bladder on CT. No evidence of focal upper tract obstruction such as a stone. Would start with madrid catheter placement to decompress the bladder and monitor creatinine. We will plan to hold off surgical intervention such as ureteral stent for now. Date of Consultation May 03, 2024 Assessment & Plan (1) Obstructive uropathy: The patient is being admitted on the hospitalist service. From a urologic perspective we recommend the following: I suspect the patient's obstructive uropathy is due his enlarged prostate, which is also resulted in the hydronephrosis noted on CT scan Would recommend maintaining the Madrid catheter Would recommend avoiding nephrotoxins and following serial labs. Hopefully with Madrid catheter drainage his creatinine will continue to improve Would recommend hydration with IV fluids The patient has been initiated on Flomax. I discussed with the patient that we will see if the Flomax will help improve his obstructive uropathy symptoms. If this does not prove successful further discussion with the patient will be had with the potential procedure intervention such as a TURP Additional recommendations to be forthcoming based on his clinical course as it unfolds History of Present Illness Reason for Consultation: Obstructive uropathy Attending Physician: Chaim Chinchilla DO History of Present Illness This is a 64-year-old male who presented the emergency department secondary to lower abdominal pain. The patient does note that he had several episodes of low back pain over the past week but usually self resolves. He does note that his lower abdominal pain seem to improve when he would urinate but it seemed worse last evening so he presented to the emergency department. Patient has had nausea without vomiting. The patient does note that over the past several weeks he has had increased urinary frequency but denies any dysuria. He also denies any hematuria or history of kidney stones. He does note that his urine stream appears to be somewhat weaker than usual and he did admit to some urinary hesitancy. He does report that he has had a 15 pound weight loss over the past several weeks. Since arrival to the hospital the patient has had labs and imaging which I independent reviewed. Chest x-ray did not show any evidence of pneumonia. Patient had a CT scan of the abdomen and pelvis that showed moderate to severe bilateral hydronephrosis. There was concern for ascending infection/pyelonephritis. No kidney stones were noted. There is marked prostate gland enlargement. Labs included CBC were white blood cell count was normal. His platelet count was normal. Hemoglobin and hematocrit were 12.2 and 36.0. Coagulation studies were normal. Chemistry profile showed sodium and potassium were both normal. BUN and creatinine were elevated at 58 and 3.8. Urinalysis was not indicative of infection. At the time my interview the patient noted improvement of his symptomatology and he was resting comfortably bed in no distress. Allergies Allergy/AdvReac Type Severity Reaction Status Date / Time No Known Allergies AdvReac Unknown Unverified 05/03/24 00:07 Home Medications Medication Instructions Recorded Confirmed Type atorvastatin 40 mg tablet 40 mg PO DAILY 05/02/24 05/03/24 History sildenafil (pulm.hypertension) 20 40 - 100 mg PO . NEEDED PRN 05/02/24 05/02/24 History mg tablet sexual relations Patient History Social History Smoking Status: Former smoker Hx Alcohol Use: No Hx Substance Use: No Preferred Language: [place] Communication Ability: Effective Beliefs That Will Affect Care: None Current Living Situation: Spouse Feels Safe at Home: Yes Safety Concerns: Feels Safe At This Time Review of Systems Review of Systems: All systems reviewed & are unremarkable except as noted in HPI & below Physical Exam Constitutional: WD/WN, vitals as above Eyes: no conjunctival abnormality ENMT: Ears: no hearing impairment Neck: trachea midline Respiratory: normal respiratory effort; no respiratory distress and no labored breathing Cardiovascular: Rate/Rhythm: regular rate and regular rhythm Gastrointestinal (Abdomen): Abdomen is soft and nondistended. There is no rebound tenderness or guarding. There is no pain with palpation Musculoskeletal: No calf tenderness Skin: no rashes Neurologic: moves all extremities Psychiatric: A+Ox3, euthymic affect Genitourinary: No CVA tenderness with percussion bilaterally. Madrid catheter was in place and appeared patent draining clear yellow urine Results & Data Vital Signs (Past 12 Hours) Vital Signs Temp Pulse Pulse Resp BP BP Pulse Ox 05/03/24 05:00 60 16 134/84 99 05/03/24 04:34 05/03/24 04:13 67 05/03/24 04:00 59 L 16 141/84 H 97 05/03/24 02:22 167/95 H 05/03/24 01:03 84 18 184/100 H 99 05/02/24 22:58 36.6 C 76 16 180/111 H 98 Pulse Ox O2 Del Method O2 Del Method 05/03/24 05:00 Room Air 05/03/24 04:34 99 Room Air 05/03/24 04:13 05/03/24 04:00 Room Air 05/03/24 02:22 05/03/24 01:03 Room Air 05/02/24 22:58 Room Air PG Care Time/CCT Total # of Minutes Spent Total Time Spent with Patient: Total time spent is greater than 50% in coordination of care (as documented) at patient's floor/unit and/or counseling patient: Coding Level of Care Code 83548 INT INP/OBS CARE MIN Diagnoses Obstructive uropathy N13.9
[2024-05-03 06:58] LABS: Base Excess VBG -9.8 mEq/L; HCO3 VBG 16 mmol/L; Oxygen Saturation VBG 60.6 %; PCO2 VBG 34 mmHg (38-50); PO2 VBG 38 mmHg; pH VBG 7.28 (7.36-7.41)
--- NOTE | 2024-05-03 07:04 | XRay Report ---
XR chest 1V portable CLINICAL HISTORY: abd pain TECHNIQUE: Single frontal radiograph of the chest was obtained. Comparison: None available at the time of this dictation. FINDINGS: No lines and tubes are seen. The cardiomediastinal silhouette is normal. The lungs are clear. No evid ence of pleural effusion or pneumothorax. IMPRESSION: No acute chest disease. ACT 112: Negative or not required by law. Electronically signed by: Wesly Bernal M.D. 05/03/2024 7:03 AM
[2024-05-03 07:05] LABS: Basophils # (auto) 0.02 K/uL (0.00-0.20); Basophils % (auto) 0.3 %; Eosinophils # (auto) 0.07 K/uL (0.00-0.50); Hematocrit (blood only) 33.8 % (42.0-52.0); Hemoglobin 11.4 g/dl (14.0-18.0); Immature Granulocytes # (auto) 0.03 K/uL (0.01-0.20); Immature Granulocytes % (auto) 0.4 %; Lymphocytes # (auto) 1.33 K/uL (1.20-3.40); Lymphocytes % (auto) 19.2 %; Mean Corpuscular Hemoglobin 30.8 pg (25.0-34.0); Mean Corpuscular Hgb Conc 33.7 g/dL (32.0-36.0); Mean Corpuscular Volume 91.4 fL (80.0-100.0); Mean Platelet Volume 9.5 fL (9.4-12.4); Monocytes # (auto) 0.71 K/uL (0.11-0.59); Monocytes % (auto) 10.3 %; Neutrophils # (auto) 4.75 K/uL (1.40-6.50); Neutrophils % (auto) 68.8 %; Platelet Count 143 K/uL (130-400); RDW Coefficient of Variation 12.4 % (11.5-14.5); RDW Standard Deviation 41.1 fL (36.4-46.3); White Blood Count 6.91 K/ul (4.8-10.8)
[2024-05-03 07:14] LABS: Calcium 8.8 mg/dl (8.6-10.3); Potassium 4.3 mmol/L (3.5-5.1)
[2024-05-03 07:19] LABS: BUN Creatinine Ratio 16.3 (10-20); Creatinine Clr Calc Pharmacy 25.5 ml/min; Est GFR (African American) 24.6 ml/min; Est GFR (Non-African American) 21.2 ml/min
[2024-05-03 07:46] LABS: Ferritin 225.6 ng/ml (8-388)
[2024-05-03 07:53] LABS: Folate (Folic Acid),Ser orPlas 10.43 ng/ml (>5.38)
[2024-05-03] MEDS: FINASTERIDE 5 MG TAB PO SCH (08:33)
[2024-05-03] MEDS: ATORVASTATIN 40 MG TAB PO SCH (08:33)
[2024-05-03] MEDS: LACTATED RINGER'S 1,000 ML IV SCH (08:34)
--- NOTE | 2024-05-03 09:53 | Urology Progress Note ---
Date of Service May 03, 2024 Assessment & Plan (1) Obstructive uropathy: (2) Bilateral hydronephrosis: (3) NATHALY (acute kidney injury): Plan: Follow-up of obstructive uropathy, bilateral hydronephrosis, NATHALY Patient is afebrile and hemodynamically stable Lab work reviewedcreatinine trending down (2.94), no leukocytosis Vallejo patent and draining clear yellow urine Recommend maintain Vallejo catheter for maximum drainage Continue tamsulosin Continue to trend labs/creatinine No acute intervention at this time will follow Admission and Anticipated Discharge Date Admission Date: May 03, 2024 Subjective Patient seen at bedside in the emergency department He is awake and sitting up in bed Generally tolerating Vallejo catheter Reports he has been experiencing lower urinary tract symptoms which worsened in the last 10 days Review of Systems Constitutional: as per Subjective / HPI Genitourinary: + as per Subjective / HPI Physical Exam Constitutional: well developed and well nourished; no acute distress Respiratory: normal respiratory effort; no respiratory distress and no labored breathing Gastrointestinal (Abdomen): Inspection/Auscultation: abdomen normal to inspection Musculoskeletal: Head/Neck/Chest: normocephalic Neurologic: moves all extremities and awake Psychiatric: Orientation: alert and oriented x 3 Genitourinary: Vallejo draining clear yellow urine Results & Data Vital Signs (Past 12 Hours) Vital Signs Temp Pulse Pulse Resp BP BP Pulse Ox 05/03/24 07:29 53 L 05/03/24 07:10 50 L 16 135/77 98 05/03/24 06:00 57 L 13 97 05/03/24 06:00 132/85 05/03/24 05:00 60 16 134/84 99 05/03/24 04:34 05/03/24 04:13 67 05/03/24 04:00 59 L 16 141/84 H 97 05/03/24 02:22 167/95 H 05/03/24 01:03 84 18 184/100 H 99 05/02/24 22:58 36.6 C 76 16 180/111 H 98 Pulse Ox O2 Del Method O2 Del Method 05/03/24 07:29 05/03/24 07:10 Room Air 05/03/24 06:00 05/03/24 06:00 05/03/24 05:00 Room Air 05/03/24 04:34 99 Room Air 05/03/24 04:13 05/03/24 04:00 Room Air 05/03/24 02:22 05/03/24 01:03 Room Air 05/02/24 22:58 Room Air PG Care Time/CCT Total # of Minutes Spent Total Time Spent with Patient: Total time spent is greater than 50% in coordination of care (as documented) at patient's floor/unit and/or counseling patient: Coding Level of Care Code None Diagnoses Obstructive uropathy N13.9 Bilateral hydronephrosis N13.30 NATHALY (acute kidney injury) N17.9
--- NOTE | 2024-05-03 14:59 | Communication Note ---
Date of Service: May 03, 2024 Patient was seen and examined, significantly improved with Vallejo catheter in. Patient reports over 800 cc retention/postvoid residual. Reviewed urology note, continue Vallejo catheter drainage Continue ceftriaxone, follow cultures. Patient did report was on antibiotics recently, would not be surprised if culture does not grow anything. Advance diet Discontinue telemetry, okay for [facility] [place] Anticipate possible discharge as soon as tomorrow if laboratory studies improved, transition oral antibiotics and outpatient follow-up with urology.
--- NOTE | 2024-05-03 17:07 | Electrocardiogram Report ---
Test Reason : Blood Pressure : / mmHG Vent. Rate : 057 BPM Atrial Rate : 057 BPM P-R Int : 144 ms QRS Dur : 100 ms QT Int : 414 ms P-R-T Axes : 051 048 058 degrees QTc Int : 402 ms Sinus bradycardia Otherwise normal ECG When compared with ECG of 17-OCT-2015 11:51, No significant change was found Confirmed by Jamil Rae ([id number]) on 05/03/2024 5:07:30 PM Referred By: REFERRED SELF Confirmed By:Jamil Rae
[2024-05-04] MEDS: cefTRIAXone SODIUM 2,000 MG/50 ML BAG IV SCH (02:41)
[2024-05-04 07:24] LABS: BUN Creatinine Ratio 19.5 (10-20); Calcium 9.2 mg/dl (8.6-10.3); Creatinine Clr Calc Pharmacy 40.6 ml/min; Est GFR (Non-African American) 37.1 ml/min; Potassium 4.4 mmol/L (3.5-5.1)
--- NOTE | 2024-05-04 09:19 | Discharge Summary ---
Discharge Summary Date of Service May 04, 2024 Principal Dx & Hospital Course #1 = Principal Diagnosis (1) NATHALY (acute kidney injury): (2) Obstructive uropathy: (3) Prostatitis, hypertrophic: Plan Patient was admitted to the hospital for acute kidney injury due to obstructive uropathy. Vallejo catheter was placed and he immediately had a return of 800 cc postvoid residual. Urology consultation was obtained. Evaluated by urology and recommended continue Vallejo catheter. He was started on Flomax and Proscar for acute prostatitis/BPH. Patient also was empirically placed on antibiotics. Patient reports that he has already had taken a course of Cipro for 5 days outpatient when he first started to have some symptoms. Here in the hospital he he had no further fevers. Urinalysis was unremarkable with no bacteria seen. Patient was also hypertensive here in the hospital. It significantly improved after Vallejo catheter was placed. To start on the Flomax which may impact his blood pressure as well. Of urology recommending continuing some antibiotics for possible bacterial prostatitis. He be sent home on Cipro which she has tolerated before. Recommend continue monitoring and follow-up with his PCP. The day of discharge she will get education on Vallejo catheter care be given a leg bag. He will be sent home with a Vallejo catheter to follow-up with urology and his PCP. Notes For Next Care Provider Continue to monitor blood pressure, patient may need additional treatment for hypertension Follow-up with urology for voiding trial and removal of Vallejo Continue to follow with urology to discuss ongoing treatment for BPH Medication Changes From Visit Flomax and Proscar added for obstructive uropathy Admission HPI Per Admitting Provider History obtained from patient, family, and records. Medical history significant for hyperlipidemia, BPH, colonic polyps, internal hemorrhoids, past tobacco abuse. Patient had screening colonoscopy last month which showed hemorrhoids and multiple polyps status post resection. Painless hematochezia for a few days after procedure without unusual abdominal pain. 3 weeks ago, patient experienced prostate discomfort following a 55 mile bike ride. Patient seen at PCPs office. Patient prescribed Bactrim for possible prostatitis. Some relief of prostate discomfort. 2 weeks ago, patient noted bladder discomfort relieved by urination. Lower abdominal pain with some back radiation. Poor appetite and nausea symptoms. [id number] ibuprofen intake as needed for pain (as much as 18 tablets a day as per patient). Patient was ill throughout overseas travel to [place] last week with his . Worsening discomfort partially relieved by ibuprofen. Some chills, no hematuria. No headache, chest pain, no SOB. Admission Exam Per Admitting Provider See H&P Discharge Exam Constitutional: Alert HEENT: Mucous membranes moist. Lungs: Clear to auscultation, decreased, no wheezes rales or rhonchi CV: S1-S2, regular Abdomen: Soft, nontender, nondistended Extremities: No significant edema : Vallejo catheter in place, clear urine in bag Neuro: No focal deficits Psych: Cooperative, normal mood Updated Medication List Medication Instructions Recorded Confirmed Type atorvastatin 40 mg tablet 40 mg PO DAILY 05/02/24 05/03/24 History sildenafil (pulm.hypertension) 20 40 - 100 mg PO . NEEDED PRN 05/02/24 05/02/24 History mg tablet sexual relations ciprofloxacin HCl 500 mg tablet 500 mg PO BID #20 tabs 05/04/24 Rx (Cipro) finasteride 5 mg tablet 5 mg PO QAM 30 days #30 tabs 05/04/24 Rx tamsulosin 0.4 mg capsule 0.4 mg PO QAM 30 days #30 caps 05/04/24 Rx Hospital Stay Data Consultations 05/03/24 01:41 ED Decision to Admit Stat 05/03/24 04:30 Consult Urology Routine Diagnostic Imagining Performed 05/03/24 01:06 CT abd pelvis wo con Stat Reviewed imaging, laboratory and diagnostic studies. Pertinent findings as be low. CT of the abdomen pelvis on admission shows significant obstructive uropathy with possible pyelonephritis and cystitis Electrolytes within normal range Initial creatinine 3.81, day of discharge creatinine had improved to 1.85 with intervention of Vallejo catheter Pending Results Patient Have Any Pending Studies at Discharge: No Discharge Instructions Given to Patient (Per Discharging Provider) Continue with medications as prescribed. Discussed with your PCP if you will need ongoing medication for your blood pressure. At this time is recommending monitoring Discussed with your urologist when it would be appropriate to check PSA Total Time Total Time Spent Total Time Spent (In Minutes): 35
[2024-05-04] MEDS: TAMSULOSIN HCL 0.4 MG CAP PO SCH (12:06)
--- NOTE | 2024-05-04 12:06 | Urology Progress Note ---
Date of Service May 04, 2024 Assessment & Plan (1) Obstructive uropathy: (2) Bilateral hydronephrosis: (3) NATHALY (acute kidney injury): Plan: Follow-up of obstructive uropathy, bilateral hydronephrosis, NATHALY Patient is afebrile and hemodynamically stable Lab work reviewedcreatinine trending down (1.85), no leukocytosis Vallejo patent and draining clear yellow urine Maintain Vallejo catheter for maximum drainage until urology follow-up Continue tamsulosin Patient was on antibiotics prior to admission, can continue course of antibiotics for possible complicated UTI Will arrange outpatient urology follow-up for cystoscopy and further evaluation will sign off, please contact our service with any additional questions or concerns Admission and Anticipated Discharge Date Admission Date: May 03, 2024 Subjective Patient seen at bedside Subjectively doing well Denies pain Vallejo intact Review of Systems Constitutional: as per Subjective / HPI Genitourinary: + as per Subjective / HPI Physical Exam Constitutional: well developed and well nourished; no acute distress Respiratory: normal respiratory effort; no respiratory distress and no labored breathing Gastrointestinal (Abdomen): Inspection/Auscultation: abdomen normal to inspection Musculoskeletal: Head/Neck/Chest: normocephalic Neurologic: moves all extremities and awake Psychiatric: Orientation: alert and oriented x 3 Genitourinary: Vallejo draining clear yellow urine Results & Data Vital Signs (Past 12 Hours) Vital Signs Temp Pulse Resp BP BP Pulse Ox O2 Del Method 05/04/24 07:02 36.6 C 57 L 16 150/86 H 98 Room Air 05/04/24 01:07 133/84 PG Care Time/CCT Total # of Minutes Spent Total Time Spent with Patient: Total time spent is greater than 50% in coordination of care (as documented) at patient's floor/unit and/or counseling patient: Coding Level of Care Code 52868 SUB INP/OBS CARE 12/11MIN Diagnoses Obstructive uropathy N13.9 Bilateral hydronephrosis N13.30 NATHALY (acute kidney injury) N17.9
== END 2024-05-04 13:30 | disposition home or self-care (01) | DRG 726 ==
LOC: ED 22:55 → EDINP 05-03 03:44 → 2N 05-03 04:31 → 3W 05-03 20:50